=== PATIENT | male | born 1940 | race Caucasian/White ===

== ENCOUNTER 2018-06-05 15:25 | Inpatient (IN) | payer MEDICARE, OTHER, SELFPAY ==
[2018-05-29 12:52] VITALS: BMI 42.8
[2018-06-04] VITALS (14 sets, daily range): BP systolic 138–164; BP diastolic 64–96; PULSE 57–84; RESP 11–20; TEMP 35.4–36.7; O2SAT 91–100; BMI 42.8
--- NOTE | 2018-06-04 06:00 | DI.RAD.S_ITS ---
PROCEDURE: XR KNEE RT 1TO2V INDICATIONS: prosthesis placement TECHNIQUE: 2 view(s) of the knee acquired. COMPARISON: [facility], MR, MR KNEE RIGHT WITHOUT CONTRAST, 04/10/2018, 11:15. [facility], CR, XR KNEE STANDING BILATERAL, 03/13/2018, 9:56. [facility] Outside Film, RG, KNEE 3VW (LT), 02/07/2018, 16:33. [facility] Outside Film, RG, KNEE 3VW (RT), 02/07/2018, 16:33. FINDINGS: Bones: Patient is status post knee joint daisy-arthroplasty. Hardware components are in expected positions. Visualized bony structures are intact. Soft tissues: Overlying postoperative changes are noted. IMPRESSION: Status post right knee hemiarthroplasty as above. Dictated by: Yumiko Pires M.D. on 06/04/2018 at 19:53 Approved by: Yumiko Pires M.D. on 06/04/2018 at 19:53
[2018-06-04] MEDS: LACTATED RINGERS 1,000 ML 42 ML IV (14:22)
--- NOTE | 2018-06-04 14:50 | PM.PREOP ---
Pre-operative Note Interval Note Pre-op Check: Yes History & Physical Reviewed by Physician and Yes Exam Performed Changes: No
--- NOTE | 2018-06-04 14:52 | P.OP_ITS ---
Operative Date/Time/Diagnoses Date of procedure: 06/04/18 Time of procedure: 17:03 Pre-op diagnosis: Right knee medial compartment osteoarthritis Post-op diagnosis: same Procedure & Clinicians Procedure: Right knee medial compartment arthroplasty Same procedure as scheduled: Yes Indications: The patient presents today for medial compartment knee arthroplasty after failure of conservative treatment. The nature of the procedure including the risks and benefits, alternatives, postoperative course and expected outcome were discussed and all questions answered. Consent was obtained. Operative site confirmed and marked. Surgeon: Marin Rodriguez Drafter Marine: Joe Wallace Anesthesia Type: General and Local Operative Notes Findings: Severe medial compartment osteoarthritis. Closure Type: primary Specimen(s): none sent Implants & Drains: Ghotra and Nephew ZUK knee E femur, 4 tibia and 8 mm polyethylene spacer. Applied: implant(s) Estimated Blood Loss (mL): 25 Blood products transfused: none Tourniquet time (min): 35 Procedure in detail: The patient was taken to the operative suite and placed under general anesthesia. The patient received prophylactic antibiotics 1 g of IV tranexamic acid prior to surgery. The lateral aspect of the leg was prepped and the knee injected with 20 mL of 1% lidocaine with epinephrine. The leg was prepped and draped in usual sterile fashion. The leg was exsanguinated with an Esmarch dressing and the tourniquet raised to 250 torr. A 10 cm medial parapatellar incision and arthrotomy was then made. The anterior aspect of the fat pad and medial meniscus was resected. A small amount of anterior tibial boss was resected with a oscillating saw. The knee was then extended and the alignment guide placed. The distal femoral and proximal tibial cutting guides were then pinned into place. The distal femoral cut was made in extension. The proximal tibial cut was made in flexion. All remaining meniscus was excised. Gaps were checked with blocks. Soft tissues were then injected with a combination of 40 mL of quarter percent Marcaine with epinephrine, 20 mL of Exparel. The femur was sized and the appropriate cutting guide placed. The peg holes were drilled and chamfer cuts made. Next the tibia was sized and drilled. Trial components were then placed. The knee had good nondenominational of soft tissue tension without over correction. Range of motion was full. The trial components were removed. The knee was cleansed with Pulsavac irrigation and dried. The components were then cemented with high viscosity vacuum mixed bone cement. The knee was held in extension until the cement had adequately cured. The knee was then irrigated and inspected for any further debris. The extensor mechanism was closed at 90? of flexion with a few interrupted #1 Vicryl sutures and a running O V-LOC suture. The knee was then filled with 50 mL of solution containing 1 g of tranexamic acid and 10 mL of 0.5% Marcaine. The subcutaneous tissue was closed with 2-0 Vicryl. The skin was closed with a running 3 0 V-LOC suture and surgical adhesive. An Aquacel dressing was applied. The leg was then wrapped with an Salomon which will be kept on for the first 24 hours. The patient tolerated the procedure well and was returned to recovery room in good condition. Condition: stable Disposition: PACU Plan for aftercare: Patient will be admitted overnight for observation and discharged home tomorrow. Standard protocol for medial compartment arthroplasty.
[2018-06-04] MEDS: CELECOXIB 200 MG CAPSULE PO (15:08)
[2018-06-04] MEDS: ACETAMINOPHEN 325 MG TABLET 975 MG PO ×2 (15:09→21:25)
[2018-06-04] MEDS: PREGABALIN 75 MG CAPSULE PO (15:09)
--- NOTE | 2018-06-04 15:16 | SUR.PREOP ---
pt has red and swollen area around lt eye , dr. caballero notified and examined pt , ok to proceed with surgery
[2018-06-04] MEDS: CEFAZOLIN 2 GM/100 ML FROZ.PIGGY IV (15:55)
[2018-06-04] MEDS: LIDOCAINE 1% W/EPI INJ 20 ML INJ (16:01)
--- NOTE | 2018-06-04 16:22 | SUR.OPER ---
Supine on padded OR bed. Pillow under head, arms secured on padded armboards <90 degree abduction. Safety belt across torso. Non-operative leg secured with tape over blanket over lower leg. Operative leg secured in DeMayo/Mario Alberto positioner. Foam padded brace at thigh of operative leg.
[2018-06-04] MEDS: TRANEXAMIC ACID 1,000 MG VIAL 1000 MG INJ (16:31)
[2018-06-04] MEDS: BUPIVACAINE 0.5% W/ EPI (PF) 20 ML, BUPIVACAINE LIPOSOME 266 MG, SODIUM CHLORIDE 0.9% 2... INJ (16:32)
[2018-06-04] MEDS: BUPIVACAINE 0.5% (PF) 10 ML, TRANEXAMIC ACID 1,000 MG, SODIUM CHLORIDE 0.9% 20 ML INJ (16:33)
--- NOTE | 2018-06-04 17:05 | SUR.OPER ---
Preoperatively the Patient has 3+ pitting edema and cellulitis on his right lower extremity (operative side) that the surgeon is aware of . He also has swelling and redness beneath is left eye preoperatively-surgeon is aware.
[2018-06-04] MEDS: LACTATED RINGERS 1,000 ML 125 ML IV (18:43)
--- NOTE | 2018-06-04 19:41 | PC.ADMIT ---
[id number] Admission Note: The patient,Bob Rabago,78 y/o, was given written information regarding hospital policies, unit procedures and contact persons. Patient's smoking status: Former smoker. Vital Signs - 8 hr 06/04/18 13:58 06/04/18 17:20 06/04/18 17:25 Temperature 98.0 F 97.1 F L Pulse Rate 57 L 74 78 Respiratory Rate 17 13 11 L Blood Pressure 138/81 164/96 H 164/96 H Pulse Oximetry 93 95 95 06/04/18 17:30 06/04/18 17:35 06/04/18 17:42 Temperature Pulse Rate 77 74 72 Respiratory Rate 14 14 13 Blood Pressure 160/84 H 160/83 H 159/89 H Pulse Oximetry 94 96 94 06/04/18 17:50 06/04/18 18:00 06/04/18 18:30 Temperature 97.1 F L 95.8 F L 96.7 F L Pulse Rate 73 76 76 Respiratory Rate 20 16 16 Blood Pressure 148/77 H 139/64 Pulse Oximetry 95 95 94 06/04/18 19:00 06/04/18 19:15 Temperature 97.5 F L Pulse Rate 80 Respiratory Rate 20 Blood Pressure 144/80 H Pulse Oximetry 100 98 Pt arrived to floor with rn from PACU, alert and oriented, denies pain. on 2l nc, will attempt to wean. Pt uses call light. oriented to hospital room and procedures. no nausea/sob. ate apple sauce, then sandwich, all with no n/v. then at meal, mashed potatoes, broccoli, cake, beef stew. tolerated great, no n/v. Pt has not yet voided, will continue to monitor. Pt bed alarm on scd on milli.
[2018-06-04] MEDS: ASPIRIN EC 81 MG TABLET PO (21:24)
[2018-06-05] VITALS (9 sets, daily range): BP systolic 113–143; BP diastolic 51–81; PULSE 79–91; RESP 16–19; TEMP 36.3–36.9; O2SAT 90–95
[2018-06-05] MEDS: MIRTAZAPINE 7.5 MG TABLET 30 MG PO (01:13)
[2018-06-05] MEDS: CEFAZOLIN 2 GM/100 ML FROZ.PIGGY IV ×2 (01:13→09:26)
[2018-06-05] MEDS: LACTATED RINGERS 1,000 ML 125 ML IV (03:00)
[2018-06-05 06:04] LABS: Hematocrit 43.4 % (41-53); Hemoglobin 14.4 g/dL (13.5-17.5)
[2018-06-05] MEDS: ALBUTEROL 2.5 MG/3 ML NEB (ADULT) INH (08:57)
[2018-06-05] MEDS: IPRATROPIUM HFA 1 PUFF INH ×2 (09:18→18:42)
[2018-06-05] MEDS: TORSEMIDE 10 MG TABLET 20 MG PO (09:18)
[2018-06-05] MEDS: LOSARTAN 50 MG TABLET 25 MG PO (09:18)
[2018-06-05] MEDS: ASPIRIN EC 81 MG TABLET PO ×2 (09:19→20:36)
[2018-06-05] MEDS: IBUPROFEN 600 MG TABLET PO (09:19)
[2018-06-05] MEDS: POTASSIUM CHLORIDE 20 MEQ TAB PO (09:20)
[2018-06-05] MEDS: ACETAMINOPHEN 325 MG TABLET 975 MG PO ×3 (09:26→20:36)
--- NOTE | 2018-06-05 09:39 | PM.PNPO.1 ---
Subjective Date Patient Seen: 06/05/18 Time Patient Seen: 09:39 Interval history: Patient is postop day 1. Status post right knee medial compartment arthroplasty by Dr. Rodriguez. States he having a lot of pain but he is trying not to take any narcotics if necessary because he has been drug and alcohol free for 35 years. Has not ambulated with physical therapy yet. He has 35 steps at home to get up to. History of COPD and was on nasal O2 this morning but is O2 stats atre at his baseline level now. Also history of sleep apnea and has a CPAP machine that he wears at night. Exam Vital Signs (past 8 hours): - 06/05/18 04:15 06/05/18 07:15 06/05/18 08:20 Temperature 98.1 F 98.4 F Pulse Rate 82 79 Respiratory Rate 19 18 Blood Pressure 138/73 143/81 H Pulse Oximetry 93 93 94 06/05/18 08:28 06/05/18 08:57 Temperature Pulse Rate 91 H Respiratory Rate 16 Blood Pressure Pulse Oximetry 90 L 92 Fraction of Inspired Oxygen 21 Oxygen Delivery Method Nasal Cannula Oxygen Flow Rate 1 Narrative Exam Narrative: Patient in bed. Alert and orient x3. Right knee dressing with an Salomon overwrap clean dry and intact. On some lower leg edema. Bilateral calves soft and nontender. Neurovascular status intact. 5/5 right ankle strength. Objective Labs Result Diagrams: 06/05/18 05:44 Labs: Laboratory Results - last 24 hr 06/05/18 05:44 Hgb 14.4 Hct 43.4 Assessment & Plan Post-op Postoperative Status post right knee medial compartment arthroplasty by Dr. Rodriguez. Postop day 1. Patient to ambulate with physical therapy today and work on stairs. History of COPD, sleep apnea, and morbid obesity so slow to ambulate. Would benefit from another day in the hospital. Continue pain medication as needed. Continue DVT prophylaxis with aspirin b.i.d. Anticipate discharge home tomorrow.
--- NOTE | 2018-06-05 10:06 | PT.IIE ---
Current Diagnoses Unilateral primary osteoarthritis, right knee (06/04/18) Surgery Performed Operation Date: 06/04/18 15:15 Actual Procedures p Unicompartment Knee Arthroplasty-Medial(Right) - Marin Rodriguez MD Surgical History (Last Updated 05/29/18 @ 13:29 by Mai Ahmadi RN) Hx of hernia repair (Acute) Hx of tonsillectomy (Acute) Status post cataract extraction of both eyes with insertion of intraocular lens (Acute) Medical History (Last Updated 05/29/18 @ 13:43 by Mai Ahmadi RN) Antisocial behavior (Acute) Anxiety (Acute) Arthritis (Acute) BCC (basal cell carcinoma of skin) (Acute) COPD (chronic obstructive pulmonary disease) (Acute) Cellulitis (Acute) Degenerative arthritis of right knee (Acute) Depression (Acute) Diabetes (Acute) Diverticulosis (Acute) Enlarged prostate (Acute) GERD (gastroesophageal reflux disease) (Acute) History of ETOH abuse (Acute) History of stroke (Acute ~1960) Hypertension (Acute) Numbness (Acute) Paroxysmal A-fib (Acute) Pneumonia (Acute) Skin cancer (Acute) Sleep apnea treated with nocturnal BiPAP (Acute) Physical Therapy Inpatient Evaluation/Re-Eval M1 PT/OT-IP Prior Functional Status Start: 06/05/18 12:25 Freq: NEEDED Status: Active Protocol: Document 06/05/18 10:06 AB (Rec: 06/05/18 12:44 AB [id number]) Medical Review Prior Functional Status Medical History Reviewed Yes Communication able to make needs known Mobility and Gait pt stated that he is modified independent with all mobilities and ambulation without AD but has used a SPC for the last 1-2 weeks due to knee pain. Social History Household Members family Living Arrangements Apartment/Condo Number of Floors (Floors) One Floor Number of Stairs To Enter/Railing? 35 steps to get to his apartment with one rail Home Environment Standard Height Toilet Walk in Shower Home Equipment Four Wheel Walker Straight Cane Lift Recliner Employment Status Retired Additional Social History Comment pt stated that he has not slept on a bed for 3 years and has been sleeping on his lift chair. stated that his brother will not be able to assist him and stated that his brother is medically more deconditioned than him. M2 PT-IP Current Condition Start: 06/05/18 12:25 Freq: NEEDED Status: Active Protocol: Document 06/05/18 10:06 AB (Rec: 06/05/18 12:44 AB [id number]) Physical Therapy Current Condition Current Condition Evaluation Date 06/05/18 Treatment Diagnosis s/p R medial compartment knee replacement Onset Date 06/04/18 Weight Bearing Status Weight Bearing Status Weight Bear as Tolerated M3 PT-IP Subjective Start: 06/05/18 12:25 Freq: NEEDED Status: Active Protocol: Document 06/05/18 10:06 AB (Rec: 06/05/18 12:44 AB [id number]) Subjective Physical Therapy Visit Type Type Initial Evaluation Visit Start Time 10:06 Visit Stop Time 10:51 Total Visit Minutes 45 Number of NURSE EXTERN Visits 0 Physical Therapy Visit Comments Patient Comments pt agreed to get out of bed Therapy Pain Assessment Pain When Pain Assessed During Mobility Pain Present Pain Present Pain Reported Location Right Knee Intensity 8 Scale Used Numeric (1 - 10) Pain Management Techniques Apply Cold Re-positioning Timing of Activity with Medications M4 PT-IP Mobility and Gait Start: 06/05/18 12:25 Freq: NEEDED Status: Active Protocol: Document 06/05/18 10:06 AB (Rec: 06/05/18 12:44 AB [id number]) PT-Bed Mobility Assessment Supine to Sit Supine to Sit Maximum Assistance Head of Bed Elevated Bedrails PT-Transfer Assessment Sit to and From Stand Sit to and from Stand Moderate Assistance 1 Person Assistance Use of Upper Extremities Equipment Transfer Assistive Device Gait Belt Front Wheeled Walker Orthotic/Prosthetic Devices or Brace: No Transfers Transfer Destination Chair Transfer Technique Stand Step Pivot Transfer Ability Level of Assist Moderate Assistance 1 Person Assistance Use of Upper Extremities Gait Assessment Gait Gait Assistance Required: Moderate Assistance Distance (Feet) 12 Able to Maintain Weight Bearing Status Yes During Gait Assistive Devices Assistive Device Gait Belt Front Wheeled Walker Orthotic/Prosthetic Devices or Brace: No Gait Deviations General Gait Pattern Antalgic Decreased Stride Length Decreased Feet Clearance Factors Limiting Gait Function Factors Limiting Gait Function Decreased Activity Tolerance Decreased Strength Limited Range of Motion Pain Poor Balance Poor Safety Awareness PT-Balance Assessment Sitting Balance and Reactions Static Sitting Balance Ability Good Dynamic Sitting Balance Ability Good Standing Balance and Reactions Static Standing Balance Ability Fair Dynamic Standing Balance Ability Poor Device Used FWW M5 PT-IP Objective Assessments Start: 06/05/18 12:25 Freq: NEEDED Status: Active Protocol: Document 06/05/18 10:06 AB (Rec: 06/05/18 12:44 AB [id number]) Orientation Orientation/Cognition Level of Alertness Alert Orientation Name Age Birthday Month Date Year Day of Week Place Situation Safety Awareness Decreased Safety Awareness Gross Range of Motion Lower Extremity ROM Assessment Bilaterally Impaired Strength Lower Extremity Strength Assessment Bilaterally Impaired Comments Strength Comments RLE weaker than LLE RLE 3-/5 LLE 4-/5 M6 PT-IP Treatment Start: 06/05/18 12:25 Freq: NEEDED Status: Active Protocol: Document 06/05/18 10:06 AB (Rec: 06/05/18 12:44 AB [id number]) Physical Therapy Treatment Education Education Provided Precautions Weight Bearing Status Post-Op Packet Safety M7 PT-IP Assessment and Plan Start: 06/05/18 12:25 Freq: NEEDED Status: Active Protocol: Document 06/05/18 10:06 AB (Rec: 06/05/18 12:44 AB [id number]) PT Summary Assessment and Plan Potential Rehabilitation Potential Fair Status of Condition at Evaluation Evolving Summary Impairments Pain ROM Strength Balance Coordination Sensation Tone Cognition Bed Mobility Transfers Gait Activity Tolerance Assessment Summary pt requiring one person mod assist with mobility and does not have much support at home. pt also has 35 steps to get into his apartment and at this time is not appropriate for stair climbing due to LE weakness and pain. pt will require SNF rehab to improve strength and mobility. Goals Bed Mobility Goal Standby Assistance Transfer Goal Standby Assistance Gait Goal Standby Assistance Gait Distance 100 Other Goals up/down 35 steps using 1 rail Days to Meet Goals 5 Frequency of Treatment Frequency Of Treatment Twice a Day Treatment Plan Physical Therapy Treatment Plan Bed Mobility Training Transfer Training Gait Training Therapeutic Exercise Balance Retraining Post Op Education Discharge Planning Hot or Cold Pack Neuromuscular Re-ed Coordination Retraining Manual Therapy Other Recommendations and Next Treatment ambulation, strengthening Focus Recommendations To Nursing Amount of Assist Needed 1 Person Assist Discharge Recommendations PT Discharge Recommendations SNF Rehab Equipment Needed for Home Before FWW Discharge
[2018-06-05] MEDS: OXYCODONE IR 5 MG TABLET PO ×3 (11:02→20:35)
--- NOTE | 2018-06-05 13:36 | CM.IDA ---
Addendum entered by ALICE Bob 06/05/18 13:45: Pt wears Bipap almost every night and explains he suffers from insomnia some nights. On the nights pt can not sleep or can not get back to sleep, pt goes to his car and can fall asleep there. Pt understands that although he gets good sleep in his car...he can not elevate his leg which causes addtl. edema. Original Note: DCP Assessment Note: Pt is a 78 yo male, resident of [place]. Pt SDC for a uni-knee surgery w/ Dr Rodriguez. Pt's PCP is Nikolas Guy; Insurance is Medicare/[employer]. Met w.pt, explained role. Pt lives w/his brother in an apt in [place]. Pt has lived there since 1997 and rent has not gone up very much. Pt explains he is going to stay in his current apt for as long as possible. Pt is indp at baseline, uses a cane when needed. Pt A+O, able to answer most questions directly, though often diverges into somewhat paranoid tendencies when reviewing life events, politics, and personal relationships. Pt admits to feeling nervous about his return home because he has 35 stairs to his apt. Reviewed SDC/Obs (?) status briefly and explained the possible barrier to covered SNF stay, pt was concerned and did not answer this EQUIPMENT COORDINATOR's question about funding for private pay stay. Pt agreeable to this EQUIPMENT COORDINATOR returning to [facility] in or Saturday to review DCP. Possibly home w/HH if pt agreeable. PT: SNF ALICE Bob Discharge Planning/Care Management CM Discharge Assessment Start: 06/05/18 13:23 Freq: Status: Active Protocol: Document 06/05/18 13:23 LAURA (Rec: 06/05/18 13:36 LAURA [id number]) Discharge Planning Assessment Assigned Regulatory Product Manager ALICE Moses DPOA/Assigned Designee Name brother Gonzalez Contact Information [phone] Advance Directives? No: Information put to patient 's chart Advance Directives on File No History Provided By Patient Prior Living Arrangements Apartment/Condo Household Members family Comment Lives with brother, pt states he will not be able to assist him in recovery Type of transporation used prior to Drives own vehicle admit Independent with ADL's Yes: Has used a cane when in pain, last few weeks Is patient alert and oriented? Yes: Notes indicate antisocial behavior, anxiety and depression Barriers to Discharge Yes Comment Pt is a larger man, 5'9 290 pounds, moving very slowly after his uni-knee with a lot of pain. Pt is SDC, possibly obs, and so far has denied funds to pay for SNF stay Discharge Plan Home Transportation Arrangement Family vs Taxi Additional Comment Pt would benefit from SNF; this EQUIPMENT COORDINATOR not certain this is a viable option for pt d/t limited funding. Home w/HH (?) Whiteboard Updated in Patient Room with Yes name and ext. # of Regulatory Product Manager Review Status In Process
--- NOTE | 2018-06-05 14:37 | PT.IPTN ---
Current Diagnoses Unilateral primary osteoarthritis, right knee (06/05/18) Surgery Performed Operation Date: 06/04/18 15:15 Actual Procedures p Unicompartment Knee Arthroplasty-Medial(Right) - Marin Rodriguez MD Physical Therapy Treatment Note M2 PT-IP Current Condition Start: 06/05/18 12:25 Freq: NEEDED Status: Active Protocol: Document 06/05/18 10:06 AB (Rec: 06/05/18 12:44 AB [id number]) Physical Therapy Current Condition Current Condition Evaluation Date 06/05/18 Treatment Diagnosis s/p R medial compartment knee replacement Onset Date 06/04/18 Weight Bearing Status Weight Bearing Status Weight Bear as Tolerated M3 PT-IP Subjective Start: 06/05/18 12:25 Freq: NEEDED Status: Active Protocol: Document 06/05/18 14:37 AB (Rec: 06/05/18 17:04 AB [id number]) Subjective Physical Therapy Visit Type Type Treatment Note Visit Start Time 14:37 Visit Stop Time 14:55 Total Visit Minutes 18 Number of INSTRUMENT MECHANIC Visits 0 Physical Therapy Visit Comments Patient Comments pt agreeable to do therapy Therapy Pain Assessment Pain When Pain Assessed At Rest Pain Present Pain Present Pain Reported Location Right Knee Intensity 7 Scale Used Numeric (1 - 10) Pain Management Techniques Timing of Activity with Medications M4 PT-IP Mobility and Gait Start: 06/05/18 12:25 Freq: NEEDED Status: Active Protocol: Document 06/05/18 14:37 AB (Rec: 06/05/18 17:04 AB [id number]) PT-Transfer Assessment Sit to and From Stand Sit to and from Stand Moderate Assistance Gait Assessment Gait Gait Assistance Required: Moderate Assistance Distance (Feet) 30 Able to Maintain Weight Bearing Status Yes During Gait Assistive Devices Assistive Device Gait Belt Front Wheeled Walker Orthotic/Prosthetic Devices or Brace: No Gait Deviations General Gait Pattern Antalgic Decreased Stride Length Decreased Feet Clearance Factors Limiting Gait Function Factors Limiting Gait Function Decreased Activity Tolerance Decreased Strength Limited Range of Motion Pain Poor Balance Poor Safety Awareness Comments Gait Comments pt with (+) R knee slight buckling towards late stance requiring mod A for stabilization and safety. pt with increase use of UE on FWW during ambulation. pt requested to stay up on chair after ambulation. educated pt on safety. M5 PT-IP Objective Assessments Start: 06/05/18 12:25 Freq: NEEDED Status: Active Protocol: Document 06/05/18 10:06 AB (Rec: 06/05/18 12:44 AB [id number]) Orientation Orientation/Cognition Level of Alertness Alert Orientation Name Age Birthday Month Date Year Day of Week Place Situation Safety Awareness Decreased Safety Awareness Gross Range of Motion Lower Extremity ROM Assessment Bilaterally Impaired Strength Lower Extremity Strength Assessment Bilaterally Impaired Comments Strength Comments RLE weaker than LLE RLE 3-/5 LLE 4-/5 M6 PT-IP Treatment Start: 06/05/18 12:25 Freq: NEEDED Status: Active Protocol: Document 06/05/18 14:37 AB (Rec: 06/05/18 17:04 AB [id number]) Physical Therapy Treatment Exercises Exercises Seated Knee Flexion/Extension Education Education Provided Precautions Weight Bearing Status Safety M7 PT-IP Assessment and Plan Start: 06/05/18 12:25 Freq: NEEDED Status: Active Protocol: Document 06/05/18 14:37 AB (Rec: 06/05/18 17:04 AB [id number]) PT Summary Assessment and Plan Potential Rehabilitation Potential Fair Summary Impairments Pain ROM Strength Balance Coordination Sensation Tone Cognition Bed Mobility Transfers Gait Activity Tolerance Progress Towards Goals Slow Progress due to Pain Slow Progress due to Activity Tolerance Assessment Summary pt requiring mod A with transfers and ambulation. pt with increase use of UE on FWW during ambulation with (+) R knee slight buckling requiring mod A for stability and safety. pt is not appropriate to do stair training at this time. informed pt regarding d /c recommendation to SNF but pt stated that he cannot afford it since he has to pay out of pocket (pt is under observation at this time and may not have medicare qualifying stay). pt also will not have any assistance at home since his brother will not be able to physically assist him. informed supervisor case loading. will continue to assess. Goals Bed Mobility Goal Standby Assistance Transfer Goal Standby Assistance Gait Goal Standby Assistance Gait Distance 100 Other Goals up/down 35 steps using 1 rail Days to Meet Goals 5 Frequency of Treatment Frequency Of Treatment Twice a Day Treatment Plan Physical Therapy Treatment Plan Bed Mobility Training Transfer Training Gait Training Therapeutic Exercise Balance Retraining Post Op Education Discharge Planning Hot or Cold Pack Neuromuscular Re-ed Coordination Retraining Manual Therapy Other Recommendations and Next Treatment ambulation, strengthening Focus Recommendations To Nursing Amount of Assist Needed 1 Person Assist Discharge Recommendations PT Discharge Recommendations SNF Rehab Equipment Needed for Home Before FWW Discharge
[2018-06-05] MEDS: SODIUM CHLORIDE 0.9% FLUSH 10 ML IV (20:36)
[2018-06-06] VITALS (8 sets, daily range): BP systolic 137–156; BP diastolic 58–79; PULSE 68–90; RESP 16–18; TEMP 36.5–37.6; O2SAT 89–98
[2018-06-06] MEDS: ALBUTEROL 2.5 MG/3 ML NEB (ADULT) INH (00:21)
[2018-06-06] MEDS: OXYCODONE IR 5 MG TABLET PO ×3 (02:20→13:58)
[2018-06-06] MEDS: ACETAMINOPHEN 325 MG TABLET 975 MG PO ×2 (08:50→21:01)
[2018-06-06] MEDS: IPRATROPIUM HFA 1 PUFF INH ×2 (08:51→21:02)
[2018-06-06] MEDS: LOSARTAN 25 MG TABLET PO (08:51)
[2018-06-06] MEDS: ASPIRIN EC 81 MG TABLET PO ×2 (08:51→21:01)
[2018-06-06] MEDS: SODIUM CHLORIDE 0.9% FLUSH 10 ML IV ×2 (08:52→21:02)
[2018-06-06] MEDS: TORSEMIDE 10 MG TABLET 20 MG PO (08:52)
[2018-06-06] MEDS: POTASSIUM CHLORIDE 20 MEQ TAB PO (08:52)
[2018-06-06] MEDS: MAGNESIUM HYDROXIDE 30 ML UDC PO (09:11)
--- NOTE | 2018-06-06 09:51 | P.PN_ITS ---
Subjective Date Patient Seen: 06/06/18 Time Patient Seen: 09:46 Interval history: Patient is postop day 2 status post right medial compartment arthroplasty by Dr. Rodriguez. Patient very slow to ambulate. Pain tolerable with pain medication but he is only trying to take Tylenol as needed for pain with oxycodone for breakthrough pain. Discharge planning is working on placement for him at a SNF due to his home situation and comorbidities. Exam Vital Signs (past 8 hours): - 06/06/18 06:18 Temperature 98.7 F Pulse Rate 90 Respiratory Rate 16 Blood Pressure 156/68 H Pulse Oximetry 93 Fraction of Inspired Oxygen 21 Oxygen Delivery Method Nasal Cannula Oxygen Flow Rate 1 Narrative Exam Narrative: Right knee with an RAY overwrap. There is some drainage on his Aquacel dressing. Moderate swelling in right knee. Lower leg edema. Bilateral calf soft and nontender. Neurovascular status intact. Five hundred five right ankle strength. Patient in bed. Alert and orient x3. Objective Labs Result Diagrams: 06/05/18 05:44 Assessment & Plan Post-op Postoperative Procedures Operation Date: 06/04/18 15:15 Actual Procedures Side Surgeon p Unicompartment Knee Arthroplasty-Medial Right Marin Rodriguez MD Postop day 2. Patient to continue ambulating with physical therapy. Continue DVT prophylaxis with aspirin b.i.d. continue pain management with Tylenol and oxycodone for breakthrough pain. Anticipate discharge to longterm facility tomorrow if bed available.
--- NOTE | 2018-06-06 10:25 | PT.IPTN ---
Current Diagnoses Unilateral primary osteoarthritis, right knee (06/05/18) Surgery Performed Operation Date: 06/04/18 15:15 Actual Procedures p Unicompartment Knee Arthroplasty-Medial(Right) - Marin Rodriguez MD Physical Therapy Treatment Note M2 PT-IP Current Condition Start: 06/05/18 12:25 Freq: NEEDED Status: Active Protocol: Document 06/05/18 10:06 AB (Rec: 06/05/18 12:44 AB [id number]) Physical Therapy Current Condition Current Condition Evaluation Date 06/05/18 Treatment Diagnosis s/p R medial compartment knee replacement Onset Date 06/04/18 Weight Bearing Status Weight Bearing Status Weight Bear as Tolerated M3 PT-IP Subjective Start: 06/05/18 12:25 Freq: NEEDED Status: Active Protocol: Document 06/06/18 10:25 GGD (Rec: 06/06/18 12:10 GGD [id number]) Subjective Physical Therapy Visit Type Type Treatment Note Visit Start Time 10:00 Visit Stop Time 10:25 Total Visit Minutes 25 Number of WEARING APPAREL SHAKER Visits 1 Physical Therapy Visit Comments Patient Comments Pt want's to get up. Therapy Pain Assessment Pain When Pain Assessed At Rest Pain Present Pain Present Pain Reported Location Right Knee Intensity 2 Scale Used Numeric (1 - 10) Pain Management Techniques Timing of Activity with Medications M4 PT-IP Mobility and Gait Start: 06/05/18 12:25 Freq: NEEDED Status: Active Protocol: Document 06/06/18 10:25 GGD (Rec: 06/06/18 12:10 GGD [id number]) PT-Bed Mobility Assessment Supine to Sit Supine to Sit Moderate Assistance 1 Person Assistance Head of Bed Elevated Bedrails Scooting Scooting to Edge of Bed Contact Guard Assistance PT-Transfer Assessment Sit to and From Stand Sit to and from Stand Minimal Assistance 1 Person Assistance Use of Upper Extremities Equipment Transfer Assistive Device Gait Belt Front Wheeled Walker Transfers Transfer Destination Chair Transfer Ability Level of Assist Minimal Assistance 1 Person Assistance Gait Assessment Gait Gait Assistance Required: Minimum Assistance 1 Person Assist Distance (Feet) 35 Assistive Devices Assistive Device Gait Belt Front Wheeled Walker Gait Deviations General Gait Pattern Antalgic Decreased Stride Length Decreased Feet Clearance Factors Limiting Gait Function Factors Limiting Gait Function Decreased Activity Tolerance Decreased Strength Limited Range of Motion Pain Poor Balance Poor Safety Awareness M5 PT-IP Objective Assessments Start: 06/05/18 12:25 Freq: NEEDED Status: Active Protocol: Document 06/05/18 10:06 AB (Rec: 06/05/18 12:44 AB [id number]) Orientation Orientation/Cognition Level of Alertness Alert Orientation Name Age Birthday Month Date Year Day of Week Place Situation Safety Awareness Decreased Safety Awareness Gross Range of Motion Lower Extremity ROM Assessment Bilaterally Impaired Strength Lower Extremity Strength Assessment Bilaterally Impaired Comments Strength Comments RLE weaker than LLE RLE 3-/5 LLE 4-/5 M6 PT-IP Treatment Start: 06/05/18 12:25 Freq: NEEDED Status: Active Protocol: Document 06/06/18 10:25 GGD (Rec: 06/06/18 12:10 GGD [id number]) Physical Therapy Treatment Exercises Exercises Ankle Pumps Quad Sets Heel Slides Seated Knee Flexion/Extension Education Education Provided Precautions Weight Bearing Status Safety M7 PT-IP Assessment and Plan Start: 06/05/18 12:25 Freq: NEEDED Status: Active Protocol: Document 06/06/18 10:25 GGD (Rec: 06/06/18 12:10 GGD [id number]) PT Summary Assessment and Plan Summary Assessment Summary Pt improved with bed mobility and transfer. He needed less assist. He did need the HOB elevated and min a with LE. He has heavy use of UE on FWW with gait. Frequency of Treatment Frequency Of Treatment Twice a Day Treatment Plan Physical Therapy Treatment Plan Bed Mobility Training Transfer Training Gait Training Therapeutic Exercise Balance Retraining Post Op Education Discharge Planning Hot or Cold Pack Neuromuscular Re-ed Coordination Retraining Manual Therapy Other Recommendations and Next Treatment ambulation, strengthening Focus Recommendations To Nursing Amount of Assist Needed 1 Person Assist Discharge Recommendations PT Discharge Recommendations SNF Rehab
--- NOTE | 2018-06-06 10:25 | PC.NURSE ---
Addendum entered by Alexandra De La Paz R.N. 06/06/18 11:35: L EYE - pt had called his md regarding eye drop, per Remberto in pharmacy, this drop is not carried here, informed pt and given a warm basin water and wash clothes for compress to l eye. Original Note: AM NOTE - pt is awake, talkative, voicing concerns over his possible discharge and the lack of arrangements for home, states he would have to stay in a motel in [place] as that is where he lives, later am [facility] social services designee in and current plan for pt to dc to snf probably tommorow, slow to mobilize, r knee w/edema and some warmth and redness to touch, aquacell dsg with shadow drainage at prox end, later HALEY Cortés in to visualize and new order rec'd to change, removed, bonded incision w/o drainage, replaced aquacell, given 5mg oxycodone and scheduled tylenol for planned mobilization this am, has a red eyelid w/hx receiving eye drops prior to adm, warm compress this am and pt called provider and the info regarding eye drop was obtained, 2l 02 with sat 98%, not using his cpap currently, RT in this am and placed RA and maintained 94%, used own inhaler this am, discussed constipation and narcotics, new orders laxatives rec'd and given stool softener and mom this am.
[2018-06-06] MEDS: DOCUSATE 100 MG CAPSULE PO ×2 (10:32→21:01)
[2018-06-06] MEDS: SENNOSIDES 8.6 MG TABLET PO ×2 (10:33→21:01)
[2018-06-06] MEDS: POLYETHYLENE GLYCOL 3350 17 GM POWD.PACK PO (10:33)
--- NOTE | 2018-06-06 13:04 | CM.DPC ---
Referrral faxed to [facility] and [facility] left per Richelle
--- NOTE | 2018-06-06 15:32 | CM.DPC ---
DCP Cont: Pt has been changed to inpt status as of 06.05.18. PT continues to recommend SNF. Discussed this change with pt, his brother Khris, and their friend at bedside this afternoon, pt very relieved and eager to DC to a SNF for continued rehab. Reviewed Medicare benefit for SNF and three midnight rule. Reviewed the list from medicare.gov for [facility] facilities in [place] (per pt's request) pt requests a SNF search in this order: 1. [facility] 2. [facility] 3. [facility] physician assistant Jono started referral process to [facility] [place]. Spoke w/Francesca in admissions P# [phone] who explained pt is accepted for care and they hope to have a bed available Saturday (a few admissions already pending that day). She requests the team call admission nurse for that day at P# [phone] to update w/DC order and F# [phone] for DC ppk. No transportation provided by this facility so options are private vehicle or paid cabulance. This ANGIOGRAPHER unsure what Co will [place] county lines; need to research this w/e. According to Francesca, no admission accepted after 1600, admission hours preferred are [id number]. Following closely. Need to update pt still on this progress and get PASSR signed. ALICE Bob
--- NOTE | 2018-06-06 15:59 | PT.IPTN ---
Current Diagnoses Unilateral primary osteoarthritis, right knee (06/05/18) Surgery Performed Operation Date: 06/04/18 15:15 Actual Procedures p Unicompartment Knee Arthroplasty-Medial(Right) - Marin Rodriguez MD Physical Therapy Treatment Note M2 PT-IP Current Condition Start: 06/05/18 12:25 Freq: NEEDED Status: Active Protocol: Document 06/05/18 10:06 AB (Rec: 06/05/18 12:44 AB [id number]) Physical Therapy Current Condition Current Condition Evaluation Date 06/05/18 Treatment Diagnosis s/p R medial compartment knee replacement Onset Date 06/04/18 Weight Bearing Status Weight Bearing Status Weight Bear as Tolerated M3 PT-IP Subjective Start: 06/05/18 12:25 Freq: NEEDED Status: Active Protocol: Document 06/06/18 15:50 GGD (Rec: 06/06/18 15:57 GGD [email or web address]) Subjective Physical Therapy Visit Type Type Treatment Note Visit Start Time 15:20 Visit Stop Time 15:45 Total Visit Minutes 25 Number of REFRIGERATOR REPAIR TECHNICIAN Visits 2 Physical Therapy Visit Comments Patient Comments Pt states he is sleepy. Therapy Pain Assessment Pain When Pain Assessed At Rest Pain Present Pain Present Denied Pain M4 PT-IP Mobility and Gait Start: 06/05/18 12:25 Freq: NEEDED Status: Active Protocol: Document 06/06/18 15:50 GGD (Rec: 06/06/18 15:57 GGD [id number]) PT-Bed Mobility Assessment Supine to Sit Supine to Sit Minimal Assistance 1 Person Assistance Head of Bed Elevated Bedrails Sit to Supine Sit to Supine Minimal Assistance 1 Person Assistance Head of Bed Elevated Bedrails Scooting Scooting to Edge of Bed Contact Guard Assistance PT-Transfer Assessment Sit to and From Stand Sit to and from Stand Minimal Assistance 1 Person Assistance Use of Upper Extremities Equipment Transfer Assistive Device Gait Belt Front Wheeled Walker Transfers Transfer Destination Bed Transfer Ability Level of Assist Minimal Assistance 1 Person Assistance Gait Assessment Gait Gait Assistance Required: Contact Guard Assist 1 Person Assist Distance (Feet) 50 Assistive Devices Assistive Device Gait Belt Front Wheeled Walker Gait Deviations General Gait Pattern Antalgic Decreased Stride Length Decreased Feet Clearance Factors Limiting Gait Function Factors Limiting Gait Function Decreased Strength Limited Range of Motion Pain Poor Safety Awareness M5 PT-IP Objective Assessments Start: 06/05/18 12:25 Freq: NEEDED Status: Active Protocol: Document 06/05/18 10:06 AB (Rec: 06/05/18 12:44 AB [id number]) Orientation Orientation/Cognition Level of Alertness Alert Orientation Name Age Birthday Month Date Year Day of Week Place Situation Safety Awareness Decreased Safety Awareness Gross Range of Motion Lower Extremity ROM Assessment Bilaterally Impaired Strength Lower Extremity Strength Assessment Bilaterally Impaired Comments Strength Comments RLE weaker than LLE RLE 3-/5 LLE 4-/5 M6 PT-IP Treatment Start: 06/05/18 12:25 Freq: NEEDED Status: Active Protocol: Document 06/06/18 15:50 GGD (Rec: 06/06/18 15:57 GGD [id number]) Physical Therapy Treatment Exercises Exercises Ankle Pumps Quad Sets Heel Slides Education Education Provided Safety M7 PT-IP Assessment and Plan Start: 06/05/18 12:25 Freq: NEEDED Status: Active Protocol: Document 06/06/18 15:50 GGD (Rec: 06/06/18 15:57 GGD [id number]) PT Summary Assessment and Plan Summary Assessment Summary Pt improved stability with gait, no LOB or knee buckling. He has heavy use of UE on FWW . He needs assist for sit to stand. He needs less assist with bed mobility with HOB elevated. Frequency of Treatment Frequency Of Treatment Twice a Day Treatment Plan Other Recommendations and Next Treatment ambulation, strengthening Focus Recommendations To Nursing Amount of Assist Needed 1 Person Assist Discharge Recommendations PT Discharge Recommendations SNF Rehab
[2018-06-07] VITALS (8 sets, daily range): BP systolic 118–140; BP diastolic 56–77; PULSE 75–86; RESP 16–20; TEMP 36.4–37.2; O2SAT 90–96
[2018-06-07] MEDS: MAGNESIUM HYDROXIDE 30 ML UDC PO (08:36)
[2018-06-07] MEDS: OXYCODONE IR 5 MG TABLET PO ×3 (08:36→17:52)
[2018-06-07] MEDS: POLYETHYLENE GLYCOL 3350 17 GM POWD.PACK PO (08:36)
[2018-06-07] MEDS: ASPIRIN EC 81 MG TABLET PO ×2 (08:37→20:39)
[2018-06-07] MEDS: DOCUSATE 100 MG CAPSULE PO ×2 (08:37→20:39)
[2018-06-07] MEDS: POTASSIUM CHLORIDE 20 MEQ TAB PO (08:37)
[2018-06-07] MEDS: LOSARTAN 25 MG TABLET PO (08:37)
[2018-06-07] MEDS: ACETAMINOPHEN 325 MG TABLET 975 MG PO ×2 (08:38→20:38)
[2018-06-07] MEDS: TORSEMIDE 10 MG TABLET 20 MG PO (08:38)
[2018-06-07] MEDS: IPRATROPIUM HFA 1 PUFF INH ×2 (08:39→19:57)
[2018-06-07] MEDS: SENNOSIDES 8.6 MG TABLET PO (08:39)
--- NOTE | 2018-06-07 11:22 | PM.PNPO.1 ---
Subjective Date Patient Seen: 06/07/18 Time Patient Seen: 11:22 Interval history: Patient is postop day 3 status post right medial compartment arthroplasty by Dr. Rodriguez. Patient slow to ambulate. He has been able to get out of bed into a chair and participating in some bed exercises. Pain tolerable with Tylenol and oxycodone for breakthrough pain. Plan is for the patient to be DC to rehab facility tomorrow in [facility]. Exam Vital Signs (past 8 hours): - 06/07/18 04:53 06/07/18 09:34 Temperature 97.9 F 97.8 F Pulse Rate 82 86 Respiratory Rate 18 18 Blood Pressure 140/66 134/77 Pulse Oximetry 95 96 Fraction of Inspired Oxygen 21 Oxygen Delivery Method Nasal Cannula Oxygen Flow Rate 2 Narrative Exam Narrative: Patient sitting in chair. Appears comfortable. Alert and orient x3. Right knee Aquacel dressing with 1 spot of dried blood. Dressing is intact. Moderate swelling in right knee. Lower leg edema above the ankle with redness. 5/5 right ankle strength. Neurovascular status intact. Bilateral calf soft and nontender. Afebrile. Objective Labs Result Diagrams: 06/05/18 05:44 Assessment & Plan Post-op Postoperative Procedures Operation Date: 06/04/18 15:15 Actual Procedures Side Surgeon p Unicompartment Knee Arthroplasty-Medial Right Marin Rodriguez MD postop day 3. Patient mentions that lower leg swelling is common for him. The redness above his ankle is always present and not new. Continue physical therapy. Continue DVT prophylaxis with aspirin. Continue pain medication as needed. Plan is to discharge to [facility] in [place] tomorrow. Follow up in the office on 06/16/2018 at 2:30 p.m. at the [facility] office.
--- NOTE | 2018-06-07 11:25 | PT.IPTN ---
Current Diagnoses Unilateral primary osteoarthritis, right knee (06/05/18) Surgery Performed Operation Date: 06/04/18 15:15 Actual Procedures p Unicompartment Knee Arthroplasty-Medial(Right) - Marin Rodriguez MD Physical Therapy Treatment Note M2 PT-IP Current Condition Start: 06/05/18 12:25 Freq: NEEDED Status: Active Protocol: Document 06/05/18 10:06 AB (Rec: 06/05/18 12:44 AB [id number]) Physical Therapy Current Condition Current Condition Evaluation Date 06/05/18 Treatment Diagnosis s/p R medial compartment knee replacement Onset Date 06/04/18 Weight Bearing Status Weight Bearing Status Weight Bear as Tolerated M3 PT-IP Subjective Start: 06/05/18 12:25 Freq: NEEDED Status: Active Protocol: Document 06/07/18 11:25 GGD (Rec: 06/07/18 12:29 GGD [id number]) Subjective Physical Therapy Visit Type Type Treatment Note Visit Start Time 10:55 Visit Stop Time 11:25 Total Visit Minutes 30 Number of FRONT END SPECIALIST Visits 3 Physical Therapy Visit Comments Patient Comments Pt feels better today. Therapy Pain Assessment Pain When Pain Assessed At Rest Pain Present Pain Present Denied Pain Location Right Knee Intensity 2 Scale Used Numeric (1 - 10) M4 PT-IP Mobility and Gait Start: 06/05/18 12:25 Freq: NEEDED Status: Active Protocol: Document 06/07/18 11:25 GGD (Rec: 06/07/18 12:29 GGD [id number]) PT-Transfer Assessment Sit to and From Stand Sit to and from Stand Contact Guard Assistance 1 Person Assistance Use of Upper Extremities Equipment Transfer Assistive Device Gait Belt Front Wheeled Walker Transfers Transfer Destination Toilet Transfer Ability Level of Assist Contact Guard Assistance Use of Upper Extremities Comments Mobility Comments Pt up to chair with NSG. Pt in toilet with call light in reach and RN informed. Gait Assessment Gait Gait Assistance Required: Contact Guard Assist 1 Person Assist Distance (Feet) 80 Assistive Devices Assistive Device Gait Belt Front Wheeled Walker Factors Limiting Gait Function Factors Limiting Gait Function Decreased Strength Limited Range of Motion Pain Poor Safety Awareness M5 PT-IP Objective Assessments Start: 06/05/18 12:25 Freq: NEEDED Status: Active Protocol: Document 06/05/18 10:06 AB (Rec: 06/05/18 12:44 AB [id number]) Orientation Orientation/Cognition Level of Alertness Alert Orientation Name Age Birthday Month Date Year Day of Week Place Situation Safety Awareness Decreased Safety Awareness Gross Range of Motion Lower Extremity ROM Assessment Bilaterally Impaired Strength Lower Extremity Strength Assessment Bilaterally Impaired Comments Strength Comments RLE weaker than LLE RLE 3-/5 LLE 4-/5 M6 PT-IP Treatment Start: 06/05/18 12:25 Freq: NEEDED Status: Active Protocol: Document 06/07/18 11:25 GGD (Rec: 06/07/18 12:29 GGD [id number]) Physical Therapy Treatment Exercises Exercises Ankle Pumps Quad Sets Heel Slides Straight Leg Raises Short Arc Quads Passive Knee Extension Hang Seated Knee Flexion/Extension Education Education Provided Post-Op Packet Safety M7 PT-IP Assessment and Plan Start: 06/05/18 12:25 Freq: NEEDED Status: Active Protocol: Document 06/07/18 11:25 GGD (Rec: 06/07/18 12:29 GGD [id number]) PT Summary Assessment and Plan Summary Assessment Summary Pt is improving slowly with mobility. He is progressing with gait and transfers. He has heavy use of UE for gait on FWW. Frequency of Treatment Frequency Of Treatment Twice a Day Treatment Plan Other Recommendations and Next Treatment ambulation, strengthening Focus Recommendations To Nursing Amount of Assist Needed 1 Person Assist Discharge Recommendations PT Discharge Recommendations SNF Rehab
--- NOTE | 2018-06-07 11:33 | PC.NURSE ---
AM NOTE - up to chair this am for breakfast, 2l 95%, removed this am and sat 92%, enc use IS, pain 1-2 on scale 0/10 r knee, given oxycodone 5mg with scheduled tylenol this am for phys therapy, discussed constipation and added mom to scheduled laxatives this am and pt later am had x2 bm, 1+ pedal edema, venous staining humberto savage dsaleksander d,i w/shadow drainage within margins.
--- NOTE | 2018-06-07 13:06 | CM.DPC ---
DCP Cont: Updated pt w/information from [facility] [place]; likely DC Saturday to this [facility] [place] and brother Khris and another friend will transport there. Pt will ask them to pick him u at approx 1300 tomorrow. PASSR completed. See last note for details on coordination w/[facility] [place]. HALEY carr. JW
--- NOTE | 2018-06-07 15:22 | PT.IPTN ---
Current Diagnoses Unilateral primary osteoarthritis, right knee (06/05/18) Surgery Performed Operation Date: 06/04/18 15:15 Actual Procedures p Unicompartment Knee Arthroplasty-Medial(Right) - Marin Rodriguez MD Physical Therapy Treatment Note M2 PT-IP Current Condition Start: 06/05/18 12:25 Freq: NEEDED Status: Active Protocol: Document 06/05/18 10:06 AB (Rec: 06/05/18 12:44 AB [id number]) Physical Therapy Current Condition Current Condition Evaluation Date 06/05/18 Treatment Diagnosis s/p R medial compartment knee replacement Onset Date 06/04/18 Weight Bearing Status Weight Bearing Status Weight Bear as Tolerated M3 PT-IP Subjective Start: 06/05/18 12:25 Freq: NEEDED Status: Active Protocol: Document 06/07/18 15:11 GGD (Rec: 06/07/18 15:22 GGD [id number]) Subjective Physical Therapy Visit Type Type Treatment Note Visit Start Time 14:40 Visit Stop Time 15:05 Total Visit Minutes 25 Number of DIRECTOR OF CARDIOPULMONARY SERVICES Visits 4 Physical Therapy Visit Comments Patient Comments Pt states he is tired. Therapy Pain Assessment Pain When Pain Assessed At Rest Pain Present Pain Present Denied Pain M4 PT-IP Mobility and Gait Start: 06/05/18 12:25 Freq: NEEDED Status: Active Protocol: Document 06/07/18 15:11 GGD (Rec: 06/07/18 15:22 GGD [id number]) PT-Transfer Assessment Sit to and From Stand Sit to and from Stand Contact Guard Assistance Use of Upper Extremities Equipment Transfer Assistive Device Front Wheeled Walker Transfers Transfer Destination Chair Comments Mobility Comments Pt needs assist for controlled sit. Gait Assessment Gait Gait Assistance Required: Contact Guard Assist Distance (Feet) 120 Able to Maintain Weight Bearing Status Yes During Gait Assistive Devices Assistive Device Gait Belt Front Wheeled Walker Gait Deviations General Gait Pattern Antalgic Decreased Stride Length Decreased Feet Clearance Factors Limiting Gait Function Factors Limiting Gait Function Decreased Strength Limited Range of Motion Pain M5 PT-IP Objective Assessments Start: 06/05/18 12:25 Freq: NEEDED Status: Active Protocol: Document 06/05/18 10:06 AB (Rec: 06/05/18 12:44 AB [id number]) Orientation Orientation/Cognition Level of Alertness Alert Orientation Name Age Birthday Month Date Year Day of Week Place Situation Safety Awareness Decreased Safety Awareness Gross Range of Motion Lower Extremity ROM Assessment Bilaterally Impaired Strength Lower Extremity Strength Assessment Bilaterally Impaired Comments Strength Comments RLE weaker than LLE RLE 3-/5 LLE 4-/5 M6 PT-IP Treatment Start: 06/05/18 12:25 Freq: NEEDED Status: Active Protocol: Document 06/07/18 15:11 GGD (Rec: 06/07/18 15:22 GGD [id number]) Physical Therapy Treatment Exercises Exercises Ankle Pumps Quad Sets Straight Leg Raises Short Arc Quads Seated Knee Flexion/Extension M7 PT-IP Assessment and Plan Start: 06/05/18 12:25 Freq: NEEDED Status: Active Protocol: Document 06/07/18 15:11 GGD (Rec: 06/07/18 15:22 GG [id number]) PT Summary Assessment and Plan Frequency of Treatment Frequency Of Treatment Twice a Day Treatment Plan Physical Therapy Treatment Plan Bed Mobility Training Transfer Training Gait Training Therapeutic Exercise Balance Retraining Post Op Education Discharge Planning Hot or Cold Pack Neuromuscular Re-ed Coordination Retraining Manual Therapy Other Recommendations and Next Treatment ambulation, strengthening Focus Recommendations To Nursing Amount of Assist Needed Standby Assistance Discharge Recommendations PT Discharge Recommendations SNF Rehab
[2018-06-08 05:19] VITALS: BP 117/53; PULSE 86; RESP 22; TEMP 36.4; O2SAT 96
[2018-06-08 05:58] VITALS: PULSE 74; RESP 16; O2SAT 95
[2018-06-08] MEDS: IPRATROPIUM HFA 1 PUFF INH (05:58)
--- NOTE | 2018-06-08 06:54 | PC.NURSE ---
Patient refused to void. Said he didn't need to at this time.
--- NOTE | 2018-06-08 07:57 | P.DS_ITS ---
History of Present Illness Date Patient Seen: 06/08/18 Time Patient Seen: 07:56 Chief complaint: [id number] RIGHT KNEE MEDIAL COMPARTMENT ARTHROPLASTY Narrative: Better pain control today. He is mobilizing better with physical therapy but still requiring assist. Discharge Providers Date of admission: 06/05/18 15:25 Primary care physician: Nikolas Guy MD Consults: 06/04/18 18:07 Consult to Discharge Planning Routine Comment: Consult to Physical Therapy Evaluate & Treat Comment: Physician Instructions: postop TKA protocol Consult to Respiratory Therapy Evaluate & Treat Comment: Physician Instructions: Evaluate and treat Discharge provider: Remberto Licona MD Summary Discharge Diagnosis: Right knee osteoarthritis Hospital Course: He was brought to the operating room on 06/04/2018 where he underwent a right knee unicompartmental arthroplasty. He was very slow to mobilize and requiring assistance. It was felt that he would be best served by nursing home prior to discharge home. Exam Vital Signs (past 8 hours): - 06/08/18 05:19 06/08/18 05:58 Temperature 97.6 F Pulse Rate 86 74 Respiratory Rate 22 16 Blood Pressure 117/53 L Pulse Oximetry 96 95 Fraction of Inspired Oxygen 21 Oxygen Delivery Method Room Air Oxygen Flow Rate 2 Const Orientation: alert and oriented x3 Extrem Other: Right knee minimal dry drainage on dressing. Soft calf. Easily wiggles toes. 1+ dorsalis pedis pulse. He does have some venous stasis changes from the distal 1/3 of the tibia down.. This is his baseline with no change. Objective Labs Result Diagrams: 06/05/18 05:44 Discharge Plan Discharge Plan Patient Disposition: [facility] Other facility: [facility] Transportation: Private vehicle Consult as needed: Dental, Hearing, Mental health, Podiatry and Vision Discharge comment: Follow-up in [address] Rodriguez. I certify the postop hospital nursing home care is medically necessary on a continuing basis for any conditions for which he/ she received care during this hospitalization.: Yes The receiving facility has agreed to accept transfer and provide medical treatment.: Yes Discharge Med Rec/Prescriptions Prescriptions: New docusate sodium 100 mg Capsule 100 mg PO BID PRN (Reason: constipation) Qty: 30 RF: 0 oxycodone 5 mg Tablet 5 mg PO Q3HR PRN (Reason: Pain, Moderate (4-6)) Qty: 30 RF: 0 aspirin 81 mg Tablet,Delayed Release (Dr/Ec) 81 mg PO BID Qty: 30 RF: 0 Continue losartan 50 mg Tablet 25 mg PO DAILY RF: 0 torsemide 20 mg Tablet 20 mg PO DAILY RF: 0 mirtazapine 30 mg Tablet 30 mg PO DAILY PRN (Reason: Sleep) RF: 0 levalbuterol tartrate [Xopenex HFA] 45 mcg/actuation Hfa Aerosol Inhaler 2 puff INHALATION Q4-6H PRN (Reason: COPD) RF: 0 ipratropium bromide [Atrovent HFA] 17 mcg/actuation Hfa Aerosol Inhaler 1 puff INHALATION BID RF: 0 potassium chloride 20 mEq Tablet Extended Release 20 meq PO DAILY RF: 0 beclomethasone dipropionate [Qvar RediHaler] 40 mcg/actuation Hfa Aerosol Breath Activated 1 puff INHALATION BID RF: 0 Follow up/Referrals: Nikolas Guy MD [Primary Care Provider] - Discharge Health Status Brief summary of current health status: See history and physical Multidrug resistant organism: No MDRO Precautions: Mcdaniel Provider Discharge Instructions Diet: Diet as Tolerated Liquid consistency: Normal/Thin Food texture: Regular Activity: Weight bear as tolerated Skin/Wound/Dressing Care Dressing: Keep dressing clean dry and intact. Okay to shower with dressing on. [facility] Reason for rehabilitation: Post-operative therapy Rehab type: Physical therapy, Occupational therapy and Speech therapy Discharge Data Primary Care Provider: Nikolas Guy Attending Provider: Marin Rodriguez Admit Date/Time: 06/05/18 15:25
[2018-06-08 08:23] VITALS: BP 139/63; PULSE 82; RESP 17; TEMP 36.9; O2SAT 94
--- NOTE | 2018-06-08 08:41 | CM.DPC ---
DCP/continued: Reviewed chart. Orders received this AM for patient to d/c to SNF. Current d/c plan is for patient to go to [facility] in [place]. Met with patient to confirm plan. Patient alert and oriented and confirms plan. Patient's friend is picking him up at 1:00pm. Orders obtained and faxed to [facility] [phone]. SCRAP CRUSHER placed call to facility and spoke with Pippa. She confirms that patient's name on board for admit today. She requests that SCRAP CRUSHER speak with admit at noon to confirm. SCRAP CRUSHER left message with admit at [facility] re: d/c today. P: Anticipate d/c to [facility] today. Friend to pick patient up at 1:00pm. RN aware. SCRAP CRUSHER to confirm with admit at facility at noon. ALICE Sorensen
[2018-06-08] MEDS: DOCUSATE 100 MG CAPSULE PO (08:59)
[2018-06-08] MEDS: ACETAMINOPHEN 325 MG TABLET 975 MG PO (08:59)
[2018-06-08] MEDS: ASPIRIN EC 81 MG TABLET PO (09:00)
[2018-06-08] MEDS: TORSEMIDE 10 MG TABLET 20 MG PO (09:00)
[2018-06-08] MEDS: LOSARTAN 25 MG TABLET PO (09:00)
[2018-06-08] MEDS: POTASSIUM CHLORIDE 20 MEQ TAB PO (09:01)
[2018-06-08] MEDS: SENNOSIDES 8.6 MG TABLET PO (09:02)
--- NOTE | 2018-06-08 12:51 | CM.DPC ---
DCP/continued: Placed call to admit at [facility], spoke with Zakia. She confirms that they can accept patient today and that orders have been received. P: [facility] today via private auto. ALICE Sorensen
--- NOTE | 2018-06-08 14:20 | PC.NURSE ---
Transfer: Pt transfered to [facility]. Pt reports no concerns about going to the facility. Aquacel dressing w/spot of drainage and intact. Plain tylenol is effective for pain control. Report called to [facility] admitting nurse for facility. Reviewed hospital course, adl's, skin condition, pt sleeping in a chair instead of the bed since he is unable to tolerate a cpap/bipap machine. Tylenol for pain. Questions answered. Zakia can also call this nurse if additional information is needed prior to this technical writer leaving at 1530. Pt transfered to facility via his friends vehicle.
== END 2018-06-08 13:30 | DRG 470 ==
LOC: OR 15:32
PROVIDERS: Admitting Provider Orthopaedic Surgery; PCP Internal Medicine; Visit Provider Orthopaedic Surgery
PROC: (CPT 27446; principal; 2018-06-04 15:15)
DX: M17.11 Unilateral primary osteoarthritis, right knee (principal); Z68.41 Body mass index [BMI] 40.0-44.9, adult; Z86.73 Personal history of transient ischemic attack (TIA), and cerebral infarction without residual deficits; I10 Essential (primary) hypertension; E11.9 Type 2 diabetes mellitus without complications; J44.9 Chronic obstructive pulmonary disease, unspecified; Z87.891 Personal history of nicotine dependence; G47.33 Obstructive sleep apnea (adult) (pediatric); F41.9 Anxiety disorder, unspecified; F32.9 Major depressive disorder, single episode, unspecified; E66.01 Morbid (severe) obesity due to excess calories; I48.0 Paroxysmal atrial fibrillation; N40.0 Benign prostatic hyperplasia without lower urinary tract symptoms; R60.0 Localized edema
CPT/HCPCS: 36415; 73560; 85014; 85018; 94640; 94760; 94762; 97110; 97116; 97162; 97530; C1776; C9290; J0690; J1100; J2250; J2405; J2704; J3010; J7613

== ENCOUNTER 2018-12-31 10:01 | Inpatient (IN) | payer MEDICARE, OTHER, SELFPAY ==
[2018-06-04 18:40] VITALS: BMI 42.8
[2018-12-23 14:57] VITALS: BMI 41.3
[2018-12-31] VITALS (19 sets, daily range): BP systolic 103–148; BP diastolic 47–80; PULSE 65–81; RESP 12–22; TEMP 36.2–37.1; O2SAT 90–99; BMI 40.2
--- NOTE | 2018-12-31 10:42 | PM.PREOP ---
Pre-operative Note Interval Note History & Physical reviewed/Exam performed by Physician: Yes Changes to H&P: Yes H&P completed within 30 days and has changed as indicated here:: Left leg swelling and erythema is significantly improved. White count was 11.8. No signs of cellulitis. The patient did fall coming into the hospital. He has some increased knee pain but no evidence of significant injury on exam.
[2018-12-31] MEDS: LACTATED RINGERS 1,000 ML 42 ML IV ×2 (10:54→13:13)
[2018-12-31] MEDS: ACETAMINOPHEN 325 MG TABLET 975 MG PO ×3 (10:55→21:07)
[2018-12-31] MEDS: PREGABALIN 75 MG CAPSULE PO (10:55)
--- NOTE | 2018-12-31 10:55 | PM.OP.1 ---
Operative Date/Time/Diagnoses Date of procedure: 12/31/18 Time of procedure: 13:24 Pre-op diagnosis: Left knee medial compartment osteoarthritis Post-op diagnosis: same Procedure & Clinicians Procedure: Left medial compartment arthroplasty Same procedure as scheduled: Yes Indications: The patient presents today for medial compartment arthroplasty after failure of conservative treatment. The nature of the procedure including the risks and benefits, alternatives, postoperative course and expected outcome were discussed and all questions answered. Consent was obtained. Operative site confirmed and marked. Surgeon: Marin Rodriguez Food And Beverage Checker: Joe Wallace Anesthesia Type: General and Local Operative Notes Findings: Severe medial compartment osteoarthritis. Closure Type: primary Specimen(s): none sent Prosthetic devices, grafts, tissues, transplants, or devices: ZUK: E femoral component, 4 tibial component and 8 mm polyethylene spacer. Applied: implant(s) Estimated Blood Loss (mL): 10 Blood products transfused: none Tourniquet time (min): 45 Procedure in detail: The patient was taken to the operative suite and placed under general anesthesia. The patient received prophylactic antibiotics 1 g of IV tranexamic acid prior to surgery. The lateral aspect of the leg was prepped and the knee injected with 20 mL of 1% lidocaine with epinephrine. The leg was prepped and draped in usual sterile fashion. The leg was exsanguinated with an Esmarch dressing and the tourniquet raised to 250 torr. A 10 cm medial parapatellar incision and arthrotomy was then made. The anterior aspect of the fat pad and medial meniscus was resected. A small amount of anterior tibial boss was resected with a oscillating saw. The knee was then extended and the alignment guide placed. The distal femoral and proximal tibial cutting guides were then pinned into place. The distal femoral cut was made in extension. The proximal tibial cut was made in flexion. All remaining meniscus was excised. Gaps were checked with blocks. Soft tissues were then injected with a combination of 40 mL of quarter percent Marcaine with epinephrine, 20 mL of Exparel. The femur was sized and the appropriate cutting guide placed. The peg holes were drilled and chamfer cuts made. Next the tibia was sized and drilled. Trial components were then placed. The knee had good mandaeism of soft tissue tension without over correction. Range of motion was full. The trial components were removed. The knee was cleansed with Pulsavac irrigation and dried. The components were then cemented with high viscosity vacuum mixed bone cement. The knee was held in extension until the cement had adequately cured. The knee was then irrigated and inspected for any further debris. The extensor mechanism was closed at 90? of flexion with a few interrupted #1 Vicryl sutures and a running O V-LOC suture. The knee was then filled with 50 mL of solution containing 1 g of tranexamic acid and 10 mL of 0.5% Marcaine. The subcutaneous tissue was closed with 2-0 Vicryl. The skin was closed with a running 3 0 V-LOC suture and surgical adhesive. An Aquacel dressing was applied. The leg was then wrapped with an Salomon which will be kept on for the first 24 hours. The patient tolerated the procedure well and was returned to recovery room in good condition. Complications: none Condition: stable Disposition: PACU Plan for aftercare: Patient will be admitted overnight for observation. He does have 30+ stairs to walk up at his apartment. He ended up going to rehabilitation after his 1st medial compartment arthroplasty.
[2018-12-31] MEDS: CELECOXIB 200 MG CAPSULE PO (10:56)
--- NOTE | 2018-12-31 11:20 | SUR.PREOP ---
pt states he fell coming into the hospital walker leg got caught on door sill, slight abrasion noted on rt knee , pt fell at 0945, dr caballero notified no actions taken
--- NOTE | 2018-12-31 11:30 | DI.RAD.S_ITS ---
PROCEDURE: XR KNEE LT 1TO2V INDICATIONS: UKA TECHNIQUE: 2 view(s) of the knee acquired. COMPARISON: [facility], CR, XR KNEE RT 1TO2V, 06/04/2018, 17:39. FINDINGS: Bones: Patient is status post left knee joint medial unicompartmental hemiarthroplasty. Hardware components are in expected positions. Visualized bony structures are intact. Soft tissues: Overlying postoperative changes are noted. IMPRESSION: Normal alignment established after medial left knee joint hemiarthroplasty, with a small amount of gas in the suprapatellar bursal space. Dictated by: Aren Hill M.D. on 12/31/2018 at 14:27 Approved by: Aren Hill M.D. on 12/31/2018 at 14:28
[2018-12-31] MEDS: CEFAZOLIN 2 GM/100 ML FROZ.PIGGY IV ×2 (12:20→20:55)
[2018-12-31] MEDS: BUPIVACAINE LIPOSOME 266 MG/20 ML VIAL INJ (12:42)
[2018-12-31] MEDS: LIDOCAINE 1% W/EPI INJ 20 ML INJ (12:43)
[2018-12-31] MEDS: BUPIVACAINE 0.5% W/ EPI (PF) 10 ML, TRANEXAMIC ACID 1,000 MG, SODIUM CHLORIDE 0.9% 20 ML INJ (12:43)
[2018-12-31] MEDS: BUPIVACAINE 0.25% W/ EPI 30 ML VIAL 40 ML INJ (12:44)
[2018-12-31] MEDS: TRANEXAMIC ACID 1,000 MG VIAL 1000 MG INJ (13:12)
--- NOTE | 2018-12-31 14:18 | SUR.PHASEI ---
1350 late entry Lung sounds: Expiratory throughout. 1419 In OPD, on O2 at 2LNP, instructed and used incentive spirometer; coughed up thick, horn mucous plug; states this is normal for him with deep breaths. Alert/oriented
--- NOTE | 2018-12-31 14:34 | SUR.PHASEII ---
Awaiting room clean; floor will notify us when it is ready. Brother at bedside. Patient has gross motion/sensation in LE. currently on O2 at 1LNP. Oriented, comfortable.
--- NOTE | 2018-12-31 15:02 | SUR.PHASEII ---
Brother stated that patient was staying overnight; found to be true upon further investigation. Patient returned to PACU for tele monitor. Valuables will be taken to acute care to be locked up with coordinator. Phone in Bipap bag, patient aware. Clothing bags and Bipap to room with patient. Meal ordered.
--- NOTE | 2018-12-31 15:42 | SUR.PHASEII ---
1515 to room 230, bed down and locked, call light within reach. patient A&O, Stable, talkative, cheerful, repeatedly voices how much he likes the care at [facility]. Tolerated pudding and fluids well. Skin warm and dry, resp even and regular. Valuables bag given to Zheng Garcia RN (coordinator). Belongings to room as previously noted. Dressing remains CDI, foot warm, able to raise legs, buttocks off bed. Report given in room. No question/concerns.
[2018-12-31] MEDS: LACTATED RINGERS 1,000 ML 125 ML IV (17:41)
[2018-12-31] MEDS: OXYCODONE IR 5 MG TABLET PO ×2 (17:43→23:45)
[2018-12-31] MEDS: IPRATROPIUM HFA 1 PUFF INH (18:02)
[2018-12-31] MEDS: ASPIRIN EC 81 MG TABLET PO (21:08)
[2018-12-31] MEDS: MIRTAZAPINE 15 MG TABLET 30 MG PO (21:09)
--- NOTE | 2018-12-31 22:00 | PC.NURSE ---
Evening Shift Note- Patient arrived to room from PACU via stretcher at 1530. Oriented patient to bed and bed controls, room, bathroom, lights, phone, menu, and call everett/tv remote. Admission questions completed, home medications, reviewed, and physical assessment done. RT called to set up bipap. safety measures in place. Patient agrees to call for assistance. bed alarm activated. call everett and phone within reach. will continue to monitor.
[2019-01-01] VITALS (9 sets, daily range): BP systolic 114–145; BP diastolic 49–87; PULSE 68–98; RESP 16–18; TEMP 36.3–36.9; O2SAT 90–97
--- NOTE | 2019-01-01 | DI.ECHO.S_ITS ---
[facility]---------+ [facility] +---------+ : : [address] : : : : [id number] : : : : Phone: [phone]---------+ Echocardiogram Report + + :Name: LAMONT CASTILLO Study Date: 01/02/2019 Height: 70 in : :[facility] Weight: 290 lb : : Gender: Male BSA: 2.4 m2 : :: 1940 Age: 78 yrs BP: 134/70 mmHg: :Reason For Study: Cardiomegaly : : Performed By: Pat Torres : :Referring: MIGEL BARLOW : + + Interpretation Summary The left ventricle is normal in size. The ejection fraction is estimated to be 65-70%. The right ventricle is grossly normal size. The right ventricular systolic function is normal. Aortic valve mild to moderately calcified with mild to moderately decreased mobility. The peak aortic velocity is 2.7 m/sec. The aortic valve mean gradient is 13 mmHg. The calculated aortic valve area is 1.6 cm2. There is mild aortic stenosis. There is mild to moderate tricuspid regurgitation. The right ventricular systolic pressure is estimated to be at least 65 mmHg based on an estimated right atrial pressure of 15 mm Hg. There is severe pulmonary hypertension. The aortic root is mildly dilated. The ascending aorta is mildly enlarged. The aortic arch is mildly enlarged. Procedure: A two-dimensional transthoracic echocardiogram with color flow and Doppler was performed. The study quality was technically adequate. There is no prior echocardiogram noted for this patient. The patient was in normal sinus rhythm during the exam. Left Ventricle: The left ventricle is normal in size. Left ventricular wall thickness is mildly increased. There is no thrombus. The ejection fraction is estimated to be 65-70%. There are no focal wall motion abnormalities. MV E/A: 1.2 Med Peak E' Ilan: 10.2 cm/sec E/E' med: 11.1. Right Ventricle: The right ventricle is grossly normal size. The right ventricular systolic function is normal. Atria: The left atrial size is normal. Right atrial size is normal. The interatrial septum is intact with no evidence for an atrial septal defect. Mitral Valve: The mitral valve is grossly normal. There is trace mitral regurgitation. Aortic Valve: The aortic valve is not well visualized. Aortic valve mild to moderately calcified with mild to moderately decreased mobility. The calculated aortic valve area is 1.6 cm2. The peak aortic velocity is 2.7 m/sec. The aortic valve mean gradient is 13 mmHg. Severity ratio is 0.43. There is no hemodynamically significant valvular aortic stenosis. There is mild aortic stenosis. No aortic regurgitation is present. Tricuspid Valve: The tricuspid valve is normal. There is mild to moderate tricuspid regurgitation. The right ventricular systolic pressure is estimated to be at least 65 mmHg based on an estimated right atrial pressure of 15 mm Hg. There is severe pulmonary hypertension. Pulmonic Valve: The pulmonic valve is not well seen, but is grossly normal. There is trace pulmonic regurgitation. Great Vessels: The aortic root is mildly dilated. The ascending aorta is mildly enlarged. The aortic arch is mildly enlarged. The IVC is dilated (diameter is greater than 2.1 cm) and it collapses less than 50% with a sniff. This suggests a high right atrial pressure of 15 mm Hg. Pericardium/ Pleura There is no pericardial effusion. There is no pleural effusion. MMode/2D Measurements & Calculations LVIDd: 5.3 cm LVOT diam: 2.2 cm LVIDs: 3.2 cm Ao root diam: 4.2 cm FS: 38.4 % Aortic Jxn: 3.1 cm EPSS: 0.39 cm asc Aorta Diam: 4.0 cm IVSd: 1.2 cm Ao Arch Diam (Prox Trans): 3.8 cm LVPWd: 0.85 cm LV sparrow. diameter/BSA (cm/m^2): 2.1 LV sys. diameter/BSA (cm/m^2): 1.3 LA A2 area: 18.6 cm2 RA long axis: 5.6 cm LA A4 area: 25.3 cm2 RA area: 22.9 cm2 LA length (vol): 5.7 cm RA vol: 79.0 ml LA vol: 70.4 ml RA : 32.3 ml/m2 LA vol index: 28.8 ml/m2 IVC diam: 2.2 cm PETERSON (plan): 2.2 cm2 Doppler Measurements & Calculations Ao V2 max: 266.8 cm/sec LVOT Max Ilan: 104.0 cm/sec Ao V2 mean: 159.3 cm/sec LV V1 max P.3 mmHg Ao max P.5 mmHg LV V1 VTI: 22.2 cm Ao mean P.5 mmHg PETERSON(I,D): 1.6 cm2 Ao V2 VTI: 51.2 cm PETERSON(V,D): 1.5 cm2 sev ratio: 0.43 PETERSON indexed to BSA (cm^2/m^2): 0.67 MV E max ilan: 113.2 cm/sec TR max ilan: 355.0 cm/sec MV A max ilan: 94.3 cm/sec TR max P.4 mmHg MV E/A: 1.2 PA V2 max: 113.7 cm/sec Med Peak E' Ilan: 10.2 cm/sec PA V2 mean: 72.9 cm/sec E/E' med: 11.1 PA mean P.5 mmHg Lat Peak E' Ilan: 10.1 cm/sec PA Accel Time: 0.13 sec E/E' lat: 11.2 E/e' average: 11.1 MV dec time: 0.16 sec MV P1/2t: 46.3 msec MV P1/2t max ilan: 112.7 cm/sec SV(LVOT): 84.4 ml MVA(P1/2t): 4.7 cm2 Reading Physician:RIMMA
--- NOTE | 2019-01-01 | DI.RAD.S_ITS ---
PROCEDURE: XR CHEST 1V INDICATIONS: wheezing TECHNIQUE: One view of the chest was acquired. COMPARISON: None. FINDINGS: Surgical changes and devices: None. Lungs and pleura: Mild pulmonary vascular congestion is seen. No focal infiltrate. No pleural effusions or pneumothorax. Mediastinum: Mediastinal contours appear normal. Heart size is enlarged. Bones and chest wall: No suspicious bony lesions. Overlying soft tissues appear unremarkable. IMPRESSION: Cardiomegaly and mild congestion. No focal infiltrate. Dictated by: Andrew Partida M.D. on 01/01/2019 at 17:17 Approved by: Andrew Partida M.D. on 01/01/2019 at 17:18
[2019-01-01] MEDS: CEFAZOLIN 2 GM/100 ML FROZ.PIGGY IV (04:15)
[2019-01-01] MEDS: OXYCODONE IR 5 MG TABLET PO (04:21)
--- NOTE | 2019-01-01 04:38 | PC.NURSE ---
Pt is A and O x 4. O2 sat on RA dropped to high 80's, came up well on 2L fed through BiPAP. Pt also had an inhaler in his bedside table he was using and some enzyme capsules he takes for swelling. Explained that we had to give meds off our Med list or have home meds okayed by Pharmacy. Put the inhaler and capsules in patient med drawer. Pt thinks he needs some PT prior to DC and some home O2.
[2019-01-01 06:20] LABS: Hemoglobin 14.4 g/dL (13.5-17.5)
[2019-01-01] MEDS: IPRATROPIUM HFA 1 PUFF INH (07:37)
[2019-01-01] MEDS: TORSEMIDE 10 MG TABLET 20 MG PO (08:47)
[2019-01-01] MEDS: ASPIRIN EC 81 MG TABLET PO ×2 (08:47→20:35)
[2019-01-01] MEDS: POTASSIUM CHLORIDE 20 MEQ TAB PO (08:47)
[2019-01-01] MEDS: MELOXICAM 7.5 MG TABLET 15 MG PO (08:47)
[2019-01-01] MEDS: ACETAMINOPHEN 325 MG TABLET 975 MG PO ×3 (08:48→20:34)
[2019-01-01] MEDS: LOSARTAN 25 MG TABLET PO (08:48)
[2019-01-01] MEDS: SODIUM CHLORIDE 0.9% FLUSH 10 ML IV ×2 (08:53→20:35)
[2019-01-01] MEDS: LEVALBUTEROL HFA 200 PUFF INH INH (08:53)
--- NOTE | 2019-01-01 09:58 | PT.IIE ---
Current Diagnoses Unilateral primary osteoarthritis, left knee (12/31/18) Surgery Performed Operation Date: 12/31/18 11:30 Actual Procedures p Unicompartment Knee Arthroplasty-Medial(Left) - Marin Rodriguez MD Surgical History (Last Updated 07/24/18 @ 08:01 by Mai Ahmadi RN) Hx of hernia repair (Acute) Hx of tonsillectomy (Acute) S/P right unicompartmental knee replacement (Acute) Status post cataract extraction of both eyes with insertion of intraocular lens (Acute) Medical History (Last Reviewed 12/31/18 @ 16:45 by Prem Chaidez, PT, [place]) Antisocial behavior (Acute) Anxiety (Acute) Arthritis (Acute) BCC (basal cell carcinoma of skin) (Acute) COPD (chronic obstructive pulmonary disease) (Acute) Cellulitis (Acute) Degenerative arthritis of right knee (Acute) Depression (Acute) Diabetes (Acute) Diverticulosis (Acute) Enlarged prostate (Acute) GERD (gastroesophageal reflux disease) (Acute) History of ETOH abuse (Acute) History of stroke (Acute ~1960) Hypertension (Acute) Numbness (Acute) Paroxysmal A-fib (Acute) Pneumonia (Acute) Skin cancer (Acute) Sleep apnea treated with nocturnal BiPAP (Acute) Physical Therapy Inpatient Evaluation/Re-Eval M1 PT/OT-IP Prior Functional Status Start: 12/31/18 16:55 Freq: NEEDED Status: Active Protocol: Document 01/01/19 08:53 RODY (Rec: 01/01/19 09:03 RODY [id number]) Medical Review Prior Functional Status Medical History Reviewed Yes Diet/Fluid Consistency Regular Communication Normal Mobility and Gait Ambulates > 2 blocks withthe use of FWW (outside amb) Uses STC with indoor amb. Single fall in six months while getting in to the hospital (IH 12/31/18). Activities of Daily Living and IADL's Indep. Prior Functional Level (Other details) Lives in a hotel with his brother which he thinks his brother would not be able to give full care support. Social History Household Members family Living Arrangements Apartment/Condo Number of Floors (Floors) Two Floors Number of Stairs To Enter/Railing? 32 steps with rails on each sides Home Environment Standard Height Toilet Employment Status Retired M2 PT-IP Current Condition Start: 12/31/18 16:55 Freq: NEEDED Status: Active Protocol: Document 01/01/19 08:53 EA (Rec: 01/01/19 09:03 EA [id number]) Physical Therapy Current Condition Current Condition Evaluation Date 01/01/19 Treatment Diagnosis s/p left TKA 12/31/18 Weight Bearing Status Weight Bearing Status Weight Bear as Tolerated M3 PT-IP Subjective Start: 12/31/18 16:55 Freq: NEEDED Status: Active Protocol: Document 01/01/19 08:53 EA (Rec: 01/01/19 09:03 EA [id number]) Subjective Physical Therapy Visit Type Type Initial Evaluation Visit Start Time 08:20 Visit Stop Time 09:00 Total Visit Minutes 40 Number of SECURITY SOLUTIONS ENGINEER Visits 0 Physical Therapy Visit Comments Patient Comments Patient agreeable to have breakfast on the chair and get evaluated. Patient Goals Be as independent as he can in all functional mobility. Therapy Pain Assessment Pain When Pain Assessed At Rest Pain Present Pain Present Pain Reported Location Left Knee Intensity 2 Scale Used Numeric (1 - 10) Description Acute Right Knee Intensity 2 Description Acute M4 PT-IP Mobility and Gait Start: 12/31/18 16:55 Freq: NEEDED Status: Active Protocol: Document 01/01/19 08:53 EA (Rec: 01/01/19 09:03 EA [id number]) PT-Bed Mobility Assessment Supine to Sit Supine to Sit Contact Guard Assistance Sit to Supine Sit to Supine Contact Guard Assistance Scooting Scooting to Edge of Bed Contact Guard Assistance PT-Transfer Assessment Sit to and From Stand Sit to and from Stand Minimal Assistance Equipment Transfer Assistive Device Gait Belt Front Wheeled Walker Transfers Transfer Destination Bed Chair Transfer Technique stepping Transfer Ability Level of Assist Contact Guard Assistance Comments Mobility Comments HOB elevated to 30 deg supine <-> sit with CGA. SAO2 check and given supplement of 2L/min BP dropps by 10 mmHg on systole Gait Assessment Gait Gait Assistance Required: Contact Guard Assist Distance (Feet) 6 Able to Maintain Weight Bearing Status Yes During Gait Assistive Devices Assistive Device Gait Belt Front Wheeled Walker Gait Deviations General Gait Pattern Antalgic Step-to Gait Factors Limiting Gait Function Factors Limiting Gait Function Decreased Activity Tolerance Decreased Strength Pain Poor Balance Comments Gait Comments Requires verbal cues with proper 3 point gait sequncing PT-Balance Assessment Sitting Balance and Reactions Static Sitting Balance Ability Good Dynamic Sitting Balance Ability Fair Standing Balance and Reactions Static Standing Balance Ability Fair Dynamic Standing Balance Ability Fair M5 PT-IP Objective Assessments Start: 04/10/19 16:55 Freq: NEEDED Status: Active Protocol: Document 01/01/19 08:53 EA (Rec: 01/01/19 09:03 EA [id number]) Orientation Orientation/Cognition Level of Alertness Alert Orientation Name Age Language Function Ability No Deficits Noted Memory Description No Deficits Noted Gross Range of Motion Upper Extremity ROM Assessment Within Functional Limits Lower Extremity ROM Assessment Left Impaired Impairments at least 0-90 deg Strength Upper Extremity Strength Assessment Within Functional Limits Lower Extremity Strength Assessment Left Impaired Knee at least 3/5 Coordination Assessment Gross Coordination Gross Coordination WNL Sensation Assessment Sensation Gross Sensation WNL Light Touch Intact Proprioception (Position) Intact Sensation Description Paresthesia M6 PT-IP Treatment Start: 12/31/18 16:55 Freq: NEEDED Status: Active Protocol: Document 01/01/19 09:58 EA (Rec: 01/01/19 09:58 EA [id number]) Physical Therapy Treatment Exercises Exercises Ankle Pumps Gluteal Sets Quad Sets Heel Slides Straight Leg Raises Short Arc Quads Passive Knee Extension Hang Seated Knee Flexion/Extension Education Education Provided Precautions Weight Bearing Status Post-Op Packet Safety Other Treatments Other Treatment Performed Transfers and gait practice. M7 PT-IP Assessment and Plan Start: 12/31/18 16:55 Freq: NEEDED Status: Active Protocol: Document 01/01/19 08:53 EA (Rec: 01/01/19 09:03 EA [id number]) PT Summary Assessment and Plan Potential Rehabilitation Potential Good Status of Condition at Evaluation Stable Summary Impairments Pain ROM Strength Balance Bed Mobility Gait Activity Tolerance Assessment Summary Pt demonstrates difficulty with functional transfers and mobility due to LLE weakness, pain, balance dysfunction, and respiratory distress which requires 2L of O2 and mobility assistance for safety at this time. Pt educated with all bed exercises and shows good understanding. Pt is a good candidate fo skilled PT prior SNF discharge destination. Goals Bed Mobility Goal Independent Transfer Goal Independent Gait Goal Independent Gait Distance 50 ft Days to Meet Goals 3 Frequency of Treatment Frequency Of Treatment Twice a Day Treatment Plan Physical Therapy Treatment Plan Bed Mobility Training Transfer Training Gait Training Therapeutic Exercise Balance Retraining Post Op Education Recommendations To Nursing Amount of Assist Needed 1 Person Assist Discharge Recommendations PT Discharge Recommendations SNF Rehab
--- NOTE | 2019-01-01 10:05 | PT.IIE ---
Current Diagnoses Unilateral primary osteoarthritis, left knee (12/31/18) Surgery Performed Operation Date: 12/31/18 11:30 Actual Procedures p Unicompartment Knee Arthroplasty-Medial(Left) - Marin Rodriguez MD Surgical History (Last Updated 07/24/18 @ 08:01 by Mai Ahmadi RN) Hx of hernia repair (Acute) Hx of tonsillectomy (Acute) S/P right unicompartmental knee replacement (Acute) Status post cataract extraction of both eyes with insertion of intraocular lens (Acute) Medical History (Last Reviewed 12/31/18 @ 16:45 by Prem Chaidez, PT, [place]) Antisocial behavior (Acute) Anxiety (Acute) Arthritis (Acute) BCC (basal cell carcinoma of skin) (Acute) COPD (chronic obstructive pulmonary disease) (Acute) Cellulitis (Acute) Degenerative arthritis of right knee (Acute) Depression (Acute) Diabetes (Acute) Diverticulosis (Acute) Enlarged prostate (Acute) GERD (gastroesophageal reflux disease) (Acute) History of ETOH abuse (Acute) History of stroke (Acute ~1960) Hypertension (Acute) Numbness (Acute) Paroxysmal A-fib (Acute) Pneumonia (Acute) Skin cancer (Acute) Sleep apnea treated with nocturnal BiPAP (Acute) Physical Therapy Inpatient Evaluation/Re-Eval M1 PT/OT-IP Prior Functional Status Start: 12/31/18 16:55 Freq: NEEDED Status: Active Protocol: Document 01/01/19 08:53 RODY (Rec: 01/01/19 09:03 RODY [id number]) Medical Review Prior Functional Status Medical History Reviewed Yes Diet/Fluid Consistency Regular Communication Normal Mobility and Gait Ambulates > 2 blocks withthe use of FWW (outside amb) Uses STC with indoor amb. Single fall in six months while getting in to the hospital (IH 12/31/18). Activities of Daily Living and IADL's Indep. Prior Functional Level (Other details) Lives in a hotel with his brother which he thinks his brother would not be able to give full care support. Social History Household Members family Living Arrangements Apartment/Condo Number of Floors (Floors) Two Floors Number of Stairs To Enter/Railing? 32 steps with rails on each sides Home Environment Standard Height Toilet Employment Status Retired M2 PT-IP Current Condition Start: 12/31/18 16:55 Freq: NEEDED Status: Active Protocol: Document 01/01/19 08:53 EA (Rec: 01/01/19 09:03 EA [id number]) Physical Therapy Current Condition Current Condition Evaluation Date 01/01/19 Treatment Diagnosis s/p left medial compartment arthroplasty 12/31/18 Weight Bearing Status Weight Bearing Status Weight Bear as Tolerated M3 PT-IP Subjective Start: 12/31/18 16:55 Freq: NEEDED Status: Active Protocol: Document 01/01/19 08:53 EA (Rec: 01/01/19 09:03 EA [id number]) Subjective Physical Therapy Visit Type Type Initial Evaluation Visit Start Time 08:20 Visit Stop Time 09:00 Total Visit Minutes 40 Number of MANUFACTURING ENGINEER PAINT Visits 0 Physical Therapy Visit Comments Patient Comments Patient agreeale to have breakfast on the chair and get evaluated. Patient Goals Be as independent as he can in all functional mobility. Therapy Pain Assessment Pain When Pain Assessed At Rest Pain Present Pain Present Pain Reported Location Left Knee Intensity 2 Scale Used Numeric (1 - 10) Description Acute Right Knee Intensity 2 Description Acute M4 PT-IP Mobility and Gait Start: 12/31/18 16:55 Freq: NEEDED Status: Active Protocol: Document 01/01/19 08:53 EA (Rec: 01/01/19 09:03 EA [id number]) PT-Bed Mobility Assessment Supine to Sit Supine to Sit Contact Guard Assistance Sit to Supine Sit to Supine Contact Guard Assistance Scooting Scooting to Edge of Bed Contact Guard Assistance PT-Transfer Assessment Sit to and From Stand Sit to and from Stand Minimal Assistance Equipment Transfer Assistive Device Gait Belt Front Wheeled Walker Transfers Transfer Destination Bed Chair Transfer Technique stepping Transfer Ability Level of Assist Contact Guard Assistance Comments Mobility Comments HOB elevated to 30 deg supine <-> sit with CGA. SAO2 check and given supplement of 2L/min BP dropps by 10 mmHg on systole Gait Assessment Gait Gait Assistance Required: Contact Guard Assist Distance (Feet) 6 Able to Maintain Weight Bearing Status Yes During Gait Assistive Devices Assistive Device Gait Belt Front Wheeled Walker Gait Deviations General Gait Pattern Antalgic Step-to Gait Factors Limiting Gait Function Factors Limiting Gait Function Decreased Activity Tolerance Decreased Strength Pain Poor Balance Comments Gait Comments Requires verbal cues with proper 3 point gait sequncing PT-Balance Assessment Sitting Balance and Reactions Static Sitting Balance Ability Good Dynamic Sitting Balance Ability Fair Standing Balance and Reactions Static Standing Balance Ability Fair Dynamic Standing Balance Ability Fair M5 PT-IP Objective Assessments Start: 12/31/18 16:55 Freq: NEEDED Status: Active Protocol: Document 01/01/19 08:53 EA (Rec: 01/01/19 09:03 EA [id number]) Orientation Orientation/Cognition Level of Alertness Alert Orientation Name Age Language Function Ability No Deficits Noted Memory Description No Deficits Noted Gross Range of Motion Upper Extremity ROM Assessment Within Functional Limits Lower Extremity ROM Assessment Left Impaired Impairments at least 0-90 deg Strength Upper Extremity Strength Assessment Within Functional Limits Lower Extremity Strength Assessment Left Impaired Knee at least 3/5 Coordination Assessment Gross Coordination Gross Coordination WNL Sensation Assessment Sensation Gross Sensation WNL Light Touch Intact Proprioception (Position) Intact Sensation Description Paresthesia M6 PT-IP Treatment Start: 12/31/18 16:55 Freq: NEEDED Status: Active Protocol: Document 01/01/19 09:58 EA (Rec: 01/01/19 09:58 EA [id number]) Physical Therapy Treatment Exercises Exercises Ankle Pumps Gluteal Sets Quad Sets Heel Slides Straight Leg Raises Short Arc Quads Passive Knee Extension Hang Seated Knee Flexion/Extension Education Education Provided Precautions Weight Bearing Status Post-Op Packet Safety Other Treatments Other Treatment Performed Transfers and gait practice. M7 PT-IP Assessment and Plan Start: 12/31/18 16:55 Freq: NEEDED Status: Active Protocol: Document 01/01/19 08:53 EA (Rec: 01/01/19 09:03 EA [id number]) PT Summary Assessment and Plan Potential Rehabilitation Potential Good Status of Condition at Evaluation Stable Summary Impairments Pain ROM Strength Balance Bed Mobility Gait Activity Tolerance Assessment Summary Pt demonstrates difficulty with functional transfers and mobility due to LLE weakness, pain, balance dysfunction, and respiratory distress which requires 2L of O2 and mobility assistance for safety at this time. Pt educated with all bed exercises and shows good understanding. Pt is a good candidate for skilled PT prior SNF discharge destination. Goals Bed Mobility Goal Independent Transfer Goal Independent Gait Goal Independent Gait Distance 50 ft Days to Meet Goals 3 Frequency of Treatment Frequency Of Treatment Twice a Day Treatment Plan Physical Therapy Treatment Plan Bed Mobility Training Transfer Training Gait Training Therapeutic Exercise Balance Retraining Post Op Education Recommendations To Nursing Amount of Assist Needed 1 Person Assist Discharge Recommendations PT Discharge Recommendations SNF Rehab
--- NOTE | 2019-01-01 10:19 | PM.PNPO.1 ---
Subjective Date Patient Seen: 01/01/19 Time Patient Seen: 10:20 Interval history: Hospital day 2, postop day 1 following left knee medial unicompartment arthroplasty by Dr. Rodriguez. Patient remained stable orthopedically. He did have desaturation during the night and was up to 4 L nasal O2. He does have a history of COPD and sleep apnea. He does use a CPAP. He was working with PT this morning and did desat with ambulating in room. he states he does not use home oxygen. He does live in the [place] area. he is in a apartment that requires 32 steps to go up to his apartment. He does have a roommate but states he is not going to be any help to him. When he had his right knee surgery done he states he was at [facility] in [place] for about 3 weeks before going home. Exam Vital Signs (past 8 hours): - 01/01/19 04:28 01/01/19 07:48 01/01/19 07:55 Temperature Pulse Rate 85 78 Respiratory Rate 18 16 Blood Pressure 145/53 H Pulse Oximetry 97 97 92 01/01/19 08:00 Temperature 98.2 F Pulse Rate 68 Respiratory Rate 18 Blood Pressure 129/87 Pulse Oximetry 96 Fraction of Inspired Oxygen 21 Oxygen Delivery Method Nasal Cannula,BiPAP Oxygen Flow Rate 2 Narrative Exam Narrative: Alert, oriented no acute distress sitting in chair. I does have nasal oxygen in place. legs. Salomon wrap and dressing to left knee are dry without drainage or inflammation. No calf pain or swelling. Pulses symmetrical. Objective Labs Result Diagrams: 01/01/19 05:07 Labs: Laboratory Results - last 24 hr 01/01/19 05:07 Hgb 14.4 Hct 44.0 Assessment & Plan Post-op Postoperative Procedures Operation Date: 12/31/18 11:30 Actual Procedures Side Surgeon p Unicompartment Knee Arthroplasty-Medial Left Marin Rodriguez MD Patient will work with PT and OT. I did ask the hospitalist to see the patient to evaluate his COPD and desaturation. Patient may need SNF before going home and train planner will evaluate this. Quality VTE Deep Vein Thrombosis/Pulmonary Embolism Present on Admission: No
--- NOTE | 2019-01-01 10:23 | P.PN_ITS ---
Subjective Date Patient Seen: 01/01/19 Time Patient Seen: 10:20 Interval history: Hospital day 2, postop day 1 following left knee medial unicompartment arthroplasty by Dr. Rodriguez. Patient remained stable orthopedically. He did have desaturation during the night and was up to 4 L nasal O2. He does have a history of COPD and sleep apnea. He does use a CPAP. He was working with PT this morning and did desat with ambulating in room. he states he does not use home oxygen. He does live in the [place] area. he is in a apartment that requires 32 steps to go up to his apartment. He does have a roommate but states he is not going to be any help to him. When he had his right knee surgery done he states he was at [facility] in [place] for about 3 weeks before going home. Exam Vital Signs (past 8 hours): - 01/01/19 04:28 01/01/19 07:48 01/01/19 07:55 Temperature Pulse Rate 85 78 Respiratory Rate 18 16 Blood Pressure 145/53 H Pulse Oximetry 97 97 92 01/01/19 08:00 Temperature 98.2 F Pulse Rate 68 Respiratory Rate 18 Blood Pressure 129/87 Pulse Oximetry 96 Fraction of Inspired Oxygen 21 Oxygen Delivery Method Nasal Cannula,BiPAP Oxygen Flow Rate 2 Narrative Exam Narrative: Alert, oriented no acute distress sitting in chair. I does have nasal oxygen in place. legs. Salomon wrap and dressing to left knee are dry without drainage or inflammation. No calf pain or swelling. Pulses symmetrical. Objective Labs Result Diagrams: 01/01/19 05:07 Labs: Laboratory Results - last 24 hr 01/01/19 05:07 Hgb 14.4 Hct 44.0 Assessment & Plan Post-op Postoperative Procedures Operation Date: 12/31/18 11:30 Actual Procedures Side Surgeon p Unicompartment Knee Arthroplasty-Medial Left Marin Rodriguez MD Patient will work with PT and OT. I did ask the hospitalist to see the patient to evaluate his COPD and desaturation. Patient may need SNF before going home and transportation planner will evaluate this. Quality VTE Deep Vein Thrombosis/Pulmonary Embolism Present on Admission: No
--- NOTE | 2019-01-01 14:40 | PT.IPTN ---
Current Diagnoses Unilateral primary osteoarthritis, left knee (12/31/18) Surgery Performed Operation Date: 12/31/18 11:30 Actual Procedures p Unicompartment Knee Arthroplasty-Medial(Left) - Marin Rodriguez MD Physical Therapy Treatment Note M2 PT-IP Current Condition Start: 12/31/18 16:55 Freq: NEEDED Status: Active Protocol: Document 01/01/19 08:53 EA (Rec: 01/01/19 09:03 EA [id number]) Physical Therapy Current Condition Current Condition Evaluation Date 01/01/19 Treatment Diagnosis s/p left medial compartment arthroplasty 12/31/18 Weight Bearing Status Weight Bearing Status Weight Bear as Tolerated M3 PT-IP Subjective Start: 12/31/18 16:55 Freq: NEEDED Status: Active Protocol: Document 01/01/19 14:25 SA (Rec: 01/01/19 14:40 SA [id number]) Subjective Physical Therapy Visit Type Type Treatment Note Visit Start Time 13:30 Visit Stop Time 13:58 Total Visit Minutes 28 Notes Pt up in chair, agreeable to PT. Number of SUPPLY CHAIN ANALYST Visits 1 Physical Therapy Visit Comments Patient Comments Pt states he doesn't think he will be able to walk much. Patient Goals Plans to d/c to SNF prior to home. Therapy Pain Assessment Pain When Pain Assessed During Mobility Pain Present Pain Present Pain Reported Location Left Knee Intensity 7 Scale Used Numeric (1 - 10) Description Acute M4 PT-IP Mobility and Gait Start: 12/31/18 16:55 Freq: NEEDED Status: Active Protocol: Document 01/01/19 14:25 SA (Rec: 01/01/19 14:40 SA [id number]) PT-Bed Mobility Assessment Supine to Sit Supine to Sit Contact Guard Assistance Sit to Supine Sit to Supine Contact Guard Assistance Scooting Scooting to Edge of Bed Contact Guard Assistance PT-Transfer Assessment Sit to and From Stand Sit to and from Stand Contact Guard Assistance Equipment Transfer Assistive Device Gait Belt Front Wheeled Walker Orthotic/Prosthetic Devices or Brace: No Transfers Transfer Destination Chair Transfer Technique Stand Step Pivot Transfer Ability Level of Assist Contact Guard Assistance Comments Mobility Comments Pt CGA with transfers with FWW , limits WBing on LLE and relies heavily on UEs. Gait Assessment Gait Gait Assistance Required: Contact Guard Assist Distance (Feet) 15 Able to Maintain Weight Bearing Status Yes During Gait Assistive Devices Assistive Device Gait Belt Front Wheeled Walker Gait Deviations General Gait Pattern Antalgic Decreased Stride Length Step-to Gait Factors Limiting Gait Function Factors Limiting Gait Function Decreased Activity Tolerance Decreased Strength Pain Poor Balance Comments Gait Comments Pt with step to gait pattern, can partially correct with cues. Pt limits gait distance stating he feels unstable and weak. Rates pain as 8/10 with Wbing. Stair Climbing Assessment Comments Stair Climbing Comments Unable at this time. M5 PT-IP Objective Assessments Start: 12/31/18 16:55 Freq: NEEDED Status: Active Protocol: Document 01/01/19 08:53 EA (Rec: 01/01/19 09:03 EA [id number]) Orientation Orientation/Cognition Level of Alertness Alert Orientation Name Age Language Function Ability No Deficits Noted Memory Description No Deficits Noted Gross Range of Motion Upper Extremity ROM Assessment Within Functional Limits Lower Extremity ROM Assessment Left Impaired Impairments at least 0-90 deg Strength Upper Extremity Strength Assessment Within Functional Limits Lower Extremity Strength Assessment Left Impaired Knee at least 3/5 Coordination Assessment Gross Coordination Gross Coordination WNL Sensation Assessment Sensation Gross Sensation WNL Light Touch Intact Proprioception (Position) Intact Sensation Description Paresthesia M6 PT-IP Treatment Start: 12/31/18 16:55 Freq: NEEDED Status: Active Protocol: Document 01/01/19 14:25 SA (Rec: 01/01/19 14:40 SA [id number]) Physical Therapy Treatment Exercises Exercises Ankle Pumps Heel Slides Short Arc Quads Seated Knee Flexion/Extension Education Education Provided Precautions Weight Bearing Status Post-Op Packet Safety Other Treatments Other Treatment Performed Standing postural correction and PLB technique. 02 sats dropped to 87% on RA, remained above 93% on 2L with mobility . M7 PT-IP Assessment and Plan Start: 12/31/18 16:55 Freq: NEEDED Status: Active Protocol: Document 01/01/19 14:25 SA (Rec: 01/01/19 14:40 SA [id number]) PT Summary Assessment and Plan Summary Assessment Summary Pt self limiting with WBing activity d/t pain. Education on importance of frequent movement for healing and ROM. Pt understands this. Frequency of Treatment Frequency Of Treatment Twice a Day Treatment Plan Physical Therapy Treatment Plan Bed Mobility Training Transfer Training Gait Training Therapeutic Exercise Balance Retraining Post Op Education Recommendations To Nursing Amount of Assist Needed 1 Person Assist Discharge Recommendations PT Discharge Recommendations SNF Rehab
--- NOTE | 2019-01-01 16:13 | PM.CN ---
History of Present Illness Date Patient Seen: 01/01/19 Chief complaint: [id number] LEFT KNEE ARTHROPLASTY Reason for consult: hypoxia Narrative: The patient is a 78-year-old male status post partial left total knee arthroscopic be. Patient was rehabbing today and found to be markedly hypoxic. When he ambulated he desaturated. Patient has a known history of COPD, hypertension, obstructive sleep apnea, obesity hypoventilation, He is not normally on oxygen at home. He has a long history of COPD having greater than a 50 pack year smoking. He does take Xopenex QVAR and Atrovent inhalers at home. He has not been receiving regular nebulizer treatments here in the hospital. The patient denies any cough shortness of breath or chest pain. he states he was in significant pain status post surgery today and could not ambulate and sat back down. The patient has had no recent hospitalizations for COPD. He does recall previously being treated with steroids for COPD exacerbation sometime ago. Sitting during the exam the patient has some baseline wheezing. His oxygen saturation on room air dips to about 90% and quickly resolves to about 94%. I am asked to evaluate him for persistent hypoxia. [facility] Surgical History (Updated 01/01/19 @ 16:34 by Cate Henriquez MD) Hx of hernia repair (Acute) Hx of tonsillectomy (Acute) S/P right unicompartmental knee replacement (Acute) Status post cataract extraction of both eyes with insertion of intraocular lens (Acute) Social History household members: family Smoking Status: Former smoker alcohol intake: former Social History household members: family Smoking Status: Former smoker alcohol intake: former Meds Home Medications Medication Instructions Recorded Confirmed Type Atrovent HFA 1 puff INHALATION BID 05/29/18 12/31/18 History levalbuterol tartrate [Xopenex HFA] 2 puff INHALATION Q4-6H PRN 05/29/18 12/31/18 History losartan 25 mg PO DAILY 05/29/18 12/31/18 History mirtazapine 30 mg PO DAILY PRN 05/29/18 12/31/18 History potassium chloride 20 meq PO DAILY 05/29/18 12/31/18 History torsemide 20 mg PO DAILY 05/29/18 12/31/18 History aspirin 81 mg PO BID #30 tab 06/08/18 12/31/18 Rx Allergies Allergy/AdvReac Type Severity Reaction Status Date / Time Beta-Blockers Allergy Pt does Verified 05/29/18 13:03 (Beta-Adrenergic Bloc not remember Review of Systems Review of Systems All systems reviewed & are unremarkable except as noted in HPI and below Exam Vital Signs (past 8 hours): - 01/01/19 13:00 01/01/19 15:35 Temperature 97.6 F 97.4 F L Pulse Rate 98 H Respiratory Rate 18 18 Blood Pressure 114/49 L 131/59 L Pulse Oximetry 96 97 Fraction of Inspired Oxygen 21 Oxygen Delivery Method Nasal Cannula,BiPAP Oxygen Flow Rate 2 Narrative Exam Narrative: Pleasant elderly male sitting up in a chair with end-expiratory wheeze Lungs:decreased breath sounds with end expiratory wheezing CV:RRR nl Sl s2 Abd: soft/ non tender/ non distended/ obese Ext: left knee with dressing, right lower extremity discolored with dry skin Neuro: Cranial Nerves in tact, Strength symmetric and equal, sensation in tact Objective Labs Result Diagrams: 01/01/19 05:07 Labs: Laboratory Results - last 24 hr 01/01/19 05:07 Hgb 14.4 Hct 44.0 Assessment & Plan (1) COPD with exacerbation: Problem details: The patient is status post left knee arthroscopic. He was hypoxic at rest and hypoxic with activity. The patient has known COPD. He is receiving Xopenex and Atrovent inhalers. Discussed plan of care with the patient. It will switch him to albuterol Atrovent nebulizers. Start him on a low pulse dose of prednisone for 5 days which he is agreeable to. Will add inhaled steroids as well. Current visit: Yes Status: Acute (2) Acute respiratory failure with hypoxia: Problem details: Acute hypoxic respiratory failure, likely multifactorial. Will assess for home oxygen. Continue nebulizers oxygen and steroids Current visit: Yes Status: Acute (3) History of arthroplasty of right knee: Current visit: Yes Status: Acute (4) Paroxysmal atrial fibrillation: Problem details: History of paroxysmal atrial fibrillation, patient is in sinus rhythm, not on anticoagulation Current visit: Yes Status: Acute (5) Morbid obesity: Current visit: Yes Status: Acute (6) Obstructive sleep apnea: Problem details: Patient will continue BiPAP at night. He may require nighttime oxygen as well. Will assess here in the hospital. Current visit: Yes Status: Acute
[2019-01-01] MEDS: ALBUTEROL/IPRATROPIUM 3 ML AMPUL INH (16:52)
[2019-01-01] MEDS: BUDESONIDE 60 PUFF/DEVICE INHALER INH (16:58)
[2019-01-01 17:40] LABS: Add Manual Diff / Slide Review NO; Basophils Absolute Auto 100 /uL (0-100); Basophils Percent Auto 0.8 % (0-2); Eosinophils Absolute Auto 100 /uL (0-450); Eosinophils Percent Auto 0.5 % (2-4); Hematocrit 45.1 % (41-53); Lymphocytes Absolute Auto 5400 /uL (1100-4500); Lymphocytes Percent Auto 32.1 % (25-40); Mean Corpuscular HGB Conc 33.3 % (30-36); Mean Corpuscular Volume 84.1 fL (80-100); Monocytes Absolute Auto 1700 /uL (0-900); Monocytes Percent Auto 9.9 % (3-14); Neutrophils Absolute Auto 9400 /uL (1500-7000); Neutrophils Percent Auto 56.7 % (50-75); Platelet Count 200 X10^3/uL (150-400); Red Blood Cell Count 5.37 X10^6/uL (4.5-5.9); Red Cell Distribution Width 14.4 % (11.6-14.8); White Blood Cell Count 16.7 X10^3/uL (4.5-11.0)
[2019-01-01 17:58] LABS: Blood Urea Nitrogen 25 mg/dL (9-20); Calcium 8.9 mg/dL (8.4-10.2); Carbon Dioxide 35 mmol/L (22-32); Chloride 99 mmol/L (98-107); Estimated Glomerular Filt Rate > 60.0 mL/min (>60); Glucose 97 mg/dL (80-110); HEMOLYSIS < 15 (0-50); Potassium 4.4 mmol/L (3.4-5.1); Sodium 140 mmol/L (137-145)
[2019-01-01 18:17] LABS: B Type Natriuretic Peptide < 100 (<100)
[2019-01-01] MEDS: predniSONE 20 MG TABLET 40 MG PO (18:55)
[2019-01-01] MEDS: MIRTAZAPINE 15 MG TABLET 30 MG PO (20:36)
--- NOTE | 2019-01-01 22:37 | PC.NURSE ---
1530-Received report, bedside safety checks done. assumed care of patient. patient A&Ox, sensation and pulses intact, denies numbness, no tingling. Encouraged w/ROM exercises. 2230-VSS, afebrile. Patient set up w/BiPAP for sleep. Adequate UOP, using urinal independently. on 2 L NC spO2 in the 90s.
[2019-01-02] VITALS (7 sets, daily range): BP systolic 111–140; BP diastolic 43–88; PULSE 59–91; RESP 16–18; TEMP 36.4–37.2; O2SAT 90–94
[2019-01-02] MEDS: MAGNESIUM HYDROXIDE 30 ML UDC PO ×2 (08:07→20:31)
[2019-01-02] MEDS: MELOXICAM 7.5 MG TABLET 15 MG PO (08:28)
[2019-01-02] MEDS: POTASSIUM CHLORIDE 20 MEQ TAB PO (08:28)
[2019-01-02] MEDS: TORSEMIDE 10 MG TABLET 20 MG PO (08:28)
[2019-01-02] MEDS: ASPIRIN EC 81 MG TABLET PO ×2 (08:28→20:25)
[2019-01-02] MEDS: LOSARTAN 25 MG TABLET PO (08:30)
[2019-01-02] MEDS: ACETAMINOPHEN 325 MG TABLET 975 MG PO ×3 (08:31→20:25)
[2019-01-02] MEDS: OXYCODONE IR 5 MG TABLET PO ×2 (08:35→20:29)
[2019-01-02] MEDS: ALBUTEROL/IPRATROPIUM 3 ML AMPUL INH ×2 (08:40→13:41)
[2019-01-02] MEDS: BUDESONIDE 60 PUFF/DEVICE INHALER INH ×2 (08:42→22:07)
--- NOTE | 2019-01-02 09:26 | PM.PNPO.1 ---
Subjective Date Patient Seen: 01/02/19 Time Patient Seen: 09:26 Interval history: POD #2 s/p left uni knee arthroplasty with Dr. Rodriguez. Patient's pain is significantly better than yesterday. He was hypoxic and had a hospitalist consult yesterday. He has been doing nebullizer treatments, using bipap, and change in inhaler treatment and is doing well on room air today. He has been slow to mobilize and has 32 stairs to get up to his apartment with no elevator. Exam Vital Signs (past 8 hours): - 01/02/19 05:03 01/02/19 09:00 01/02/19 09:10 Temperature 97.6 F 98.2 F Pulse Rate 59 L 86 83 Respiratory Rate 16 18 16 Blood Pressure 140/88 134/70 Pulse Oximetry 94 90 L 93 Fraction of Inspired Oxygen 21 Oxygen Delivery Method Room Air Oxygen Flow Rate 0 Narrative Exam Narrative: Patient sitting in bedside chair in NAD. He is alert and oriented x3. Dressing on left knee is CDI. He is able to actively flex and extend his knee. sensation intact light touch throughout bilateral lower extremities. Calves are soft, compressible, nontender bilaterally. Pulses are symmetrical. Objective Labs Result Diagrams: 01/01/19 17:28 01/01/19 17:28 Labs: Laboratory Results - last 24 hr 01/01/19 01/01/19 01/01/19 17:28 17:28 17:28 WBC 16.7 H RBC 5.37 Hgb 15.0 Hct 45.1 MCV 84.1 MCH 28.0 MCHC 33.3 RDW 14.4 Plt Count 200 Neut % (Auto) 56.7 Lymph % (Auto) 32.1 [place] % (Auto) 9.9 Eos % (Auto) 0.5 L Baso % (Auto) 0.8 Neut # (Auto) 9400 H Lymph # (Auto) 5400 H [place] # (Auto) 1700 H Eos # (Auto) 100 Baso # (Auto) 100 Sodium 140 Potassium 4.4 Chloride 99 Carbon Dioxide 35 H BUN 25 H Creatinine 1.00 Estimated GFR > 60.0 BUN/Creatinine Ratio 25.0 H Glucose 97 Calcium 8.9 B-Natriuretic Peptide < 100 Assessment & Plan Post-op (1) Obstructive sleep apnea: (2) Morbid obesity: (3) Paroxysmal atrial fibrillation: (4) Acute respiratory failure with hypoxia: (5) COPD with exacerbation: Postoperative Procedures Operation Date: 12/31/18 11:30 Actual Procedures Side Surgeon p Unicompartment Knee Arthroplasty-Medial Left Marin Rodriguez MD Patient will continue to mobilize with PT. Continue hospitalist recommendations for COPD treatment. Given multiple medical comorbidities and mobilization issues he will likely continue to need a SNF for continued care. Quality VTE Deep Vein Thrombosis/Pulmonary Embolism Present on Admission: No
[2019-01-02] MEDS: DOCUSATE 100 MG CAPSULE PO (11:05)
[2019-01-02] MEDS: SODIUM CHLORIDE 0.9% FLUSH 10 ML IV ×2 (11:12→20:26)
[2019-01-02] MEDS: predniSONE 20 MG TABLET 40 MG PO (11:16)
--- NOTE | 2019-01-02 11:55 | CM.DANOTE ---
Addendum entered by Bre Galvez LPN 01/02/19 14:15: Мария/Andra confirms acceptance. Needs PT and OT notes faxed. OT Eva seeing pt now and then these will be faxed. Мария says all will be ready for weekend. Admission nurse Zakia will be the contact at tel # [phone]. Same fax # as noted below. Pt is updated. Original Note: Discharge Planning/Care Management DCP: assessment: case received, EMR reviewed and met with pt. Introduced self and role. Pt is a 78 year old male who admitted 12/31 for a planned L knee surgery/uni. Payer: Medicare and out of state [employer]: Admission status: INPT: confirmed by UR JAMES Mccloud. Surgeon: Dr. Rodriguez Principal Developer: hospitalist: Dr. Henriquez. Pt identifies his d/c plan as snf and would very much like to go to [facility]. He was there for rehab May 2018: after [facility] stay for R knee surgery. Referral: given by phone and fax to Мария: her admission line: [phone] and fax: [phone]. Мария is reviewing and will call back. She confirms they accept pt's over the weekend. Pt states his brother Nestor will be driving him to the facility at d/c. Will be following. CM Discharge Assessment Start: 01/02/19 11:37 Freq: Status: Active Protocol: Document 01/02/19 11:37 ITV (Rec: 01/02/19 11:53 ITV [id number]) Discharge Planning Assessment History Provided By Patient Medical Record Has Patient been admitted in last 30 No days? Prior Living Arrangements Apartment/Condo Comment lives with his brother Nestor Rabago 32 steps to the second floor of the apt building..Nestor confirms the elevator is not functional and due to codes will likely not be repaired. Household Members family Comment brother Independent with ADL's Yes Is patient alert and oriented? Yes Transportation Arrangement Family vs Taxi Medicare Choice List Provided Yes SNF/HH Preference [facility]: [facility] Has Agency SNF been contacted Yes Whiteboard Updated in Patient Room with Yes name and ext. # of Air Intercept Controller Supervisor Review Status In Process Next Review Type Continued Stay Review Pre-Anesthesia Assessment Start: 12/23/18 14:57 Freq: Status: Complete Protocol: Document 12/23/18 14:57 CAB (Rec: 12/23/18 15:04 CAB [id number]) Pre-Anesthesia Assessment Patient Information Reviewed Via Chart Review H&P Completed Within 30 Days Yes Diagnostic Results BMP/CMP CBC Comment Outside labs scanned to record , WBCs 13.3 Primary Care Provider Nikolas Guy Seen Specialist in Last 12 Months Yes Specialist Seen Geography Department Chair Orthopedist Primary Language Burundian Preferred Language Burundian Adult Education Manager Required No Height 180.34 cm Weight 134.263 kg Body Mass Index (BMI) 41.3 Hearing Ability Normal Visual Assist Glasses Magnifying Glass Dentition Type Teeth, Natural Present Teeth, Missing Barriers to Learning None Other Aids No Hx Anesthesia Reactions No Hx Family Anesthesia Reaction No Hx Malignant Hyperthermia No Hx Blood Transfusions No Anesthesia Review Requested No Consumer Lender No alcohol intake former Alcohol Intake Frequency Other: Sober x 35 years Smoking Status Former smoker Tobacco type cigarettes how long ago did patient quit smoking Quit 1986 x 33 x 2-3 ppd Substance Use Type does not use Pain Present Pain Reported Musculoskeletal Symptoms Abnormal Gait Difficulty Walking Joint Pain History of Falling (Recent or History of No ) Patient is completely paralyzed or No completely immobile Prosthesis or Orthotic Device Cane Front Wheel Walker Is patient on oxygen? No Does patient have MCCLURE/SOB No Hx Sleep Apnea Yes CPAP/BIPAP use prescribed and used routinely Currently Taking a Beta Brian No Can You Climb a Flight of Stairs Without Yes SOB Hx Chest Pain No Hx SOB No Hx Syncope or Dizziness No Anti-Coagulant Therapy No Has a Deputy Attorney General No Cardiac Testing Yes: ECHO 12/10/17 Hx Pacemaker/ICD No Pacemaker Rep Required? No Cardiac Clearance Received Not Applicable Diet Type At Home Regular dysphagia Yes: Occasionally Bladder Pattern Frequency Urgency Urinary Catheter Present No Hx Urinary Self Catheterization No Diabetes Yes: Diet controlled, no medications Hx Drug Resistant Organism No Presence of External or Internal Medical No Devices Have you traveled outside the [place] in the last 30 days? Marital Status / Lives With family Prior Living Arrangements Apartment/Condo Support System Sibling(s) Patient Discharge Plan Description Return Home Do You Have Any Spiritual Beliefs That No May Affect Your HC Choices? Do You Have Any Cultural Practices That No May Affect Your HC Choices? Health Care Proxy/Next of Kin Jenniffer (Daughter) Emergency Contact Name Nestor Rabago (Brother) Emergency Contact Advance Directives? Unknown, information provided w/prior admit 06/04/18 Advance Directives on File No Power of Drop Press Hand No
--- NOTE | 2019-01-02 12:24 | PT.IPTN ---
Current Diagnoses Morbid (severe) obesity due to excess calories (12/31/18) Obstructive sleep apnea (adult) (pediatric) (12/31/18) Paroxysmal atrial fibrillation (12/31/18) Chronic obstructive pulmonary disease with (acute) exacerbation (12/31/18) Acute respiratory failure with hypoxia (12/31/18) Unilateral primary osteoarthritis, left knee (12/31/18) Presence of right artificial knee joint (12/31/18) Surgery Performed Operation Date: 12/31/18 11:30 Actual Procedures p Unicompartment Knee Arthroplasty-Medial(Left) - Marin Rodriguez MD Physical Therapy Treatment Note M2 PT-IP Current Condition Start: 12/31/18 16:55 Freq: NEEDED Status: Active Protocol: Document 01/01/19 08:53 EA (Rec: 01/01/19 09:03 EA [id number]) Physical Therapy Current Condition Current Condition Evaluation Date 01/01/19 Treatment Diagnosis s/p left medial compartment arthroplasty 12/31/18 Weight Bearing Status Weight Bearing Status Weight Bear as Tolerated M3 PT-IP Subjective Start: 12/31/18 16:55 Freq: NEEDED Status: Active Protocol: Document 01/02/19 11:00 HH (Rec: 01/02/19 12:24 HH [email or web address]) Subjective Physical Therapy Visit Type Type Treatment Note Visit Start Time 11:00 Visit Stop Time 11:30 Total Visit Minutes 30 Notes Per RN, pt has been getting OOB to chair/ bathroom multiple times with 1pa. Number of AX SURVEY WORKER Visits 0 Physical Therapy Visit Comments Patient Comments Im doing much better today but i dont think i can go home yet because of the 32steps Therapy Pain Assessment Pain When Pain Assessed During Mobility Pain Present Pain Present Pain Reported Location Left Knee Intensity 3 Scale Used Numeric (1 - 10) Description Acute M4 PT-IP Mobility and Gait Start: 12/31/18 16:55 Freq: NEEDED Status: Active Protocol: Document 01/02/19 11:00 HH (Rec: 01/02/19 12:24 HH [id number]) PT-Bed Mobility Assessment Supine to Sit Supine to Sit Standby Assistance Sit to Supine Sit to Supine Standby Assistance Scooting Scooting to Edge of Bed Standby Assistance PT-Transfer Assessment Sit to and From Stand Sit to and from Stand Standby Assistance Equipment Transfer Assistive Device Gait Belt Front Wheeled Walker Orthotic/Prosthetic Devices or Brace: No Transfers Transfer Destination Chair Transfer Technique Stand Step Pivot Transfer Ability Level of Assist Standby Assistance Use of Upper Extremities Comments Mobility Comments Pt SBA with all bed mobility and transfers. He is able to fully WB and less relied on UEs. Gait Assessment Gait Gait Assistance Required: Standby Assistance Distance (Feet) 200 Able to Maintain Weight Bearing Status Yes During Gait Assistive Devices Assistive Device Gait Belt Front Wheeled Walker Gait Deviations General Gait Pattern Antalgic Decreased Stride Length Step-to Gait Factors Limiting Gait Function Factors Limiting Gait Function Decreased Activity Tolerance Decreased Strength Pain Poor Balance Comments Gait Comments Gait training with pt followed by w/c today. Pt with step to gait for first 80 feet but then progressed to 1/2 step through with antalgic gait. Stair Climbing Assessment Evaluation Level of Assist On Stairs Contact Guard Assistance Devices Stair Climbing Assistive Devices Left Railing Right Railing Technique/Endurance Stair Climbing Direction Ascend and Descend Stair Climbing Technique Step to Step Number of Steps Climbed 3 Query Text: Stair Climbing Set # Repetitions (reps) 3 Comments Stair Climbing Comments educated pt to lead with RLE going up and with LLE going down M5 PT-IP Objective Assessments Start: 12/31/18 16:55 Freq: NEEDED Status: Active Protocol: Document 01/01/19 08:53 EA (Rec: 01/01/19 09:03 EA [id number]) Orientation Orientation/Cognition Level of Alertness Alert Orientation Name Age Language Function Ability No Deficits Noted Memory Description No Deficits Noted Gross Range of Motion Upper Extremity ROM Assessment Within Functional Limits Lower Extremity ROM Assessment Left Impaired Impairments at least 0-90 deg Strength Upper Extremity Strength Assessment Within Functional Limits Lower Extremity Strength Assessment Left Impaired Knee at least 3/5 Coordination Assessment Gross Coordination Gross Coordination WNL Sensation Assessment Sensation Gross Sensation WNL Light Touch Intact Proprioception (Position) Intact Sensation Description Paresthesia M6 PT-IP Treatment Start: 12/31/18 16:55 Freq: NEEDED Status: Active Protocol: Document 01/01/19 14:25 SA (Rec: 01/01/19 14:40 SA [id number]) Physical Therapy Treatment Exercises Exercises Ankle Pumps Heel Slides Short Arc Quads Seated Knee Flexion/Extension Education Education Provided Precautions Weight Bearing Status Post-Op Packet Safety Other Treatments Other Treatment Performed Standing postural correction and PLB technique. 02 sats dropped to 87% on RA, remained above 93% on 2L with mobility . M7 PT-IP Assessment and Plan Start: 12/31/18 16:55 Freq: NEEDED Status: Active Protocol: Document 01/02/19 11:00 (Rec: 01/02/19 12:24 [id number]) PT Summary Assessment and Plan Potential Rehabilitation Potential Good Status of Condition at Evaluation Stable Summary Impairments Pain ROM Strength Balance Bed Mobility Gait Activity Tolerance Assessment Summary Pt showed significant improved mobility today who amb 200 ft with FWW SBA (step to <>step through gait) and able to climb 3steps x 3 with B railings CGA. Pt is still not safe to d/c home due to 32 steps at home. Goals Bed Mobility Goal Independent Transfer Goal Independent Gait Goal Independent Gait Distance 300 Other Goals climb steps x 32 indepdnently Days to Meet Goals 3 Frequency of Treatment Frequency Of Treatment Twice a Day Treatment Plan Physical Therapy Treatment Plan Bed Mobility Training Transfer Training Gait Training Therapeutic Exercise Balance Retraining Post Op Education Recommendations To Nursing Amount of Assist Needed 1 Person Assist Discharge Recommendations PT Discharge Recommendations SNF Rehab
--- NOTE | 2019-01-02 13:47 | PM.PN.1 ---
Subjective Date Patient Seen: 01/02/19 Interval history: 78-year-old male I was asked to evaluate for persistent hypoxia during ambulation. Patient did received a nebulizer treatment yesterday. He has a room air oxygen saturation of 92%. He was able to ambulate today without significant hypoxia. Patient is now on his usual inhalers. He was started on prednisone yesterday. Exam Vital Signs (past 8 hours): - 01/02/19 09:00 01/02/19 09:10 01/02/19 12:00 Temperature 98.2 F 97.5 F L Pulse Rate 86 83 75 Respiratory Rate 18 16 18 Blood Pressure 134/70 111/43 L Pulse Oximetry 90 L 93 91 Fraction of Inspired Oxygen 21 Oxygen Delivery Method Room Air Oxygen Flow Rate 0 Narrative Exam Narrative: Pleasant gentleman resting comfortably Lungs: Decreased breath sounds with occasional end-expiratory wheezing Cardiac exam: Irregular, normal S1-S2 Abdomen: Soft and nontender Extremities: Left knee with an Salomon bandage and dressing in place Objective Labs Result Diagrams: 01/01/19 17:28 01/01/19 17:28 Labs: Laboratory Results - last 24 hr 01/01/19 01/01/19 01/01/19 17:28 17:28 17:28 WBC 16.7 H RBC 5.37 Hgb 15.0 Hct 45.1 MCV 84.1 MCH 28.0 MCHC 33.3 RDW 14.4 Plt Count 200 Neut % (Auto) 56.7 Lymph % (Auto) 32.1 [place] % (Auto) 9.9 Eos % (Auto) 0.5 L Baso % (Auto) 0.8 Neut # (Auto) 9400 H Lymph # (Auto) 5400 H [place] # (Auto) 1700 H Eos # (Auto) 100 Baso # (Auto) 100 Sodium 140 Potassium 4.4 Chloride 99 Carbon Dioxide 35 H BUN 25 H Creatinine 1.00 Estimated GFR > 60.0 BUN/Creatinine Ratio 25.0 H Glucose 97 Calcium 8.9 B-Natriuretic Peptide < 100 Assessment & Plan (1) COPD with exacerbation: Problem details: The patient is status post left knee arthroscopic. He was hypoxic at rest and hypoxic with activity. The patient has known COPD. He is receiving Xopenex and Atrovent inhalers. Discussed plan of care with the patient. It will switch him to albuterol Atrovent nebulizers. Start him on a low pulse dose of prednisone for 5 days which he is agreeable to. Will add inhaled steroids as well. Improved Current visit: Yes Status: Acute (2) Acute respiratory failure with hypoxia: Problem details: Acute hypoxic respiratory failure, likely multifactorial. Will assess for home oxygen. Continue nebulizers oxygen and steroids Significantly improved no need for home O2 at this time Current visit: Yes Status: Acute (3) History of arthroplasty of right knee: Problem details: Per Ortho Current visit: Yes Status: Acute (4) Paroxysmal atrial fibrillation: Problem details: History of paroxysmal atrial fibrillation, patient is in sinus rhythm, not on anticoagulation No further intervention needed Current visit: Yes Status: Acute (5) Morbid obesity: Current visit: Yes Status: Acute (6) Obstructive sleep apnea: Problem details: Patient will continue BiPAP at night. He may require nighttime oxygen as well. Will assess here in the hospital. Current visit: Yes Status: Acute Assessment & Plan narrative: Recommend a 5 day course of prednisone. Patient should discontinue it and 3 days. Quality VTE Deep Vein Thrombosis/Pulmonary Embolism Present on Admission: No
--- NOTE | 2019-01-02 14:09 | PT.IPTN ---
Current Diagnoses Morbid (severe) obesity due to excess calories (12/31/18) Obstructive sleep apnea (adult) (pediatric) (12/31/18) Paroxysmal atrial fibrillation (12/31/18) Chronic obstructive pulmonary disease with (acute) exacerbation (12/31/18) Acute respiratory failure with hypoxia (12/31/18) Unilateral primary osteoarthritis, left knee (12/31/18) Presence of right artificial knee joint (12/31/18) Surgery Performed Operation Date: 12/31/18 11:30 Actual Procedures p Unicompartment Knee Arthroplasty-Medial(Left) - Marin Rodriguez MD Physical Therapy Treatment Note M2 PT-IP Current Condition Start: 12/31/18 16:55 Freq: NEEDED Status: Active Protocol: Document 01/01/19 08:53 EA (Rec: 01/01/19 09:03 EA [id number]) Physical Therapy Current Condition Current Condition Evaluation Date 01/01/19 Treatment Diagnosis s/p left medial compartment arthroplasty 12/31/18 Weight Bearing Status Weight Bearing Status Weight Bear as Tolerated M3 PT-IP Subjective Start: 12/31/18 16:55 Freq: NEEDED Status: Active Protocol: Document 01/02/19 14:09 AB (Rec: 01/02/19 15:43 AB [id number]) Subjective Physical Therapy Visit Type Type Treatment Note Visit Start Time 14:09 Visit Stop Time 14:21 Total Visit Minutes 12 Number of REAL ESTATE OFFICER Visits 0 Physical Therapy Visit Comments Patient Comments pt agreeable to do PT Therapy Pain Assessment Pain When Pain Assessed At Rest Pain Present Pain Present Pain Reported Location Left Knee Intensity 3 Scale Used Numeric (1 - 10) Pain Management Techniques Re-positioning Timing of Activity with Medications M4 PT-IP Mobility and Gait Start: 12/31/18 16:55 Freq: NEEDED Status: Active Protocol: Document 01/02/19 14:09 AB (Rec: 01/02/19 15:43 AB [id number]) PT-Transfer Assessment Sit to and From Stand Sit to and from Stand Contact Guard Assistance Equipment Transfer Assistive Device Gait Belt Front Wheeled Walker Gait Assessment Gait Gait Assistance Required: Minimum Assistance Distance (Feet) 100 Able to Maintain Weight Bearing Status Yes During Gait Assistive Devices Assistive Device Gait Belt Front Wheeled Walker Orthotic/Prosthetic Devices or Brace: No Gait Deviations General Gait Pattern Antalgic Factors Limiting Gait Function Factors Limiting Gait Function Decreased Activity Tolerance Decreased Strength Limited Range of Motion Pain Poor Balance Comments Gait Comments pt can be impulsive. pt tends to hyperextend L knee during ambulation. M5 PT-IP Objective Assessments Start: 12/31/18 16:55 Freq: NEEDED Status: Active Protocol: Document 01/01/19 08:53 EA (Rec: 01/01/19 09:03 EA [id number]) Orientation Orientation/Cognition Level of Alertness Alert Orientation Name Age Language Function Ability No Deficits Noted Memory Description No Deficits Noted Gross Range of Motion Upper Extremity ROM Assessment Within Functional Limits Lower Extremity ROM Assessment Left Impaired Impairments at least 0-90 deg Strength Upper Extremity Strength Assessment Within Functional Limits Lower Extremity Strength Assessment Left Impaired Knee at least 3/5 Coordination Assessment Gross Coordination Gross Coordination WNL Sensation Assessment Sensation Gross Sensation WNL Light Touch Intact Proprioception (Position) Intact Sensation Description Paresthesia M6 PT-IP Treatment Start: 12/31/18 16:55 Freq: NEEDED Status: Active Protocol: Document 01/02/19 14:09 AB (Rec: 01/02/19 15:43 AB [id number]) Physical Therapy Treatment Education Education Provided Precautions Safety M7 PT-IP Assessment and Plan Start: 12/31/18 16:55 Freq: NEEDED Status: Active Protocol: Document 01/02/19 14:09 AB (Rec: 01/02/19 15:43 AB [id number]) PT Summary Assessment and Plan Potential Rehabilitation Potential Good Summary Impairments Pain ROM Strength Balance Coordination Sensation Tone Cognition Bed Mobility Transfers Gait Activity Tolerance Progress Towards Goals Progressing Toward Goals Assessment Summary pt continues to require one person assist with mobility and with decrease safety awareness. pt has 32 steps to get into the house and stated that his brother assists with some house chores but will not be able to actually assist him due to his brother's own medical issues. pt will benefit from SNF rehab to improve strength and mobility prior to d/c home. Goals Bed Mobility Goal Independent Transfer Goal Independent Gait Goal Independent Gait Distance 300 Other Goals up/down 32 steps B rail SBA Days to Meet Goals 5 Frequency of Treatment Frequency Of Treatment Twice a Day Treatment Plan Physical Therapy Treatment Plan Bed Mobility Training Transfer Training Gait Training Therapeutic Exercise Balance Retraining Post Op Education Recommendations To Nursing Amount of Assist Needed 1 Person Assist Discharge Recommendations PT Discharge Recommendations SNF Rehab
--- NOTE | 2019-01-02 15:24 | OT.IP.EVAL ---
Current Diagnoses Morbid (severe) obesity due to excess calories (12/31/18) Obstructive sleep apnea (adult) (pediatric) (12/31/18) Paroxysmal atrial fibrillation (12/31/18) Chronic obstructive pulmonary disease with (acute) exacerbation (12/31/18) Acute respiratory failure with hypoxia (12/31/18) Unilateral primary osteoarthritis, left knee (12/31/18) Presence of right artificial knee joint (12/31/18) Surgery Performed Operation Date: 12/31/18 11:30 Actual Procedures p Unicompartment Knee Arthroplasty-Medial(Left) - Marin Rodriguez MD Past Medical History (Last Reviewed 12/31/18 @ 16:45 by Prem Chaidez, PT, [place]) Antisocial behavior (Acute) Anxiety (Acute) Arthritis (Acute) BCC (basal cell carcinoma of skin) (Acute) COPD (chronic obstructive pulmonary disease) (Acute) Cellulitis (Acute) Degenerative arthritis of right knee (Acute) Depression (Acute) Diabetes (Acute) Diverticulosis (Acute) Enlarged prostate (Acute) GERD (gastroesophageal reflux disease) (Acute) History of ETOH abuse (Acute) History of stroke (Acute ~1959) Hypertension (Acute) Numbness (Acute) Paroxysmal A-fib (Acute) Pneumonia (Acute) Skin cancer (Acute) Sleep apnea treated with nocturnal BiPAP (Acute) Surgical History (Last Updated 07/24/18 @ 08:01 by Mai Ahmadi RN) Hx of hernia repair (Acute) Hx of tonsillectomy (Acute) S/P right unicompartmental knee replacement (Acute) Status post cataract extraction of both eyes with insertion of intraocular lens (Acute) Occupational Therapy Inpatient Evaluation/Re-Eval M1 PT/OT-IP Prior Functional Status Start: 01/02/19 14:55 Freq: NEEDED Status: Active Protocol: Document 01/02/19 14:57 [facility] (Rec: 01/02/19 15:23 [facility] [id number]) Medical Review Prior Functional Status Medical History Reviewed Yes Diet/Fluid Consistency Regular Communication Normal Mobility and Gait Ambulates > 2 blocks with the use of FWW (outside amb) Uses STC with indoor amb. Single fall in six months while getting in to the hospital (IH 12/31/18). Activities of Daily Living and IADL's Indep. Prior Functional Level (Other details) Lives in a hotel with his brother which he thinks his brother would not be able to give full care support. Social History Household Members family Living Arrangements Apartment/Condo Number of Floors (Floors) Two Floors Number of Stairs To Enter/Railing? 32 steps with rails on each sides Home Environment Standard Height Toilet Employment Status Retired M2 OT-IP Current Condition Start: 01/02/19 14:55 Freq: Status: Active Protocol: Document 01/02/19 14:57 [facility] (Rec: 01/02/19 15:23 [facility] [id number]) Occupational Therapy Current Condition Current Condition Evaluation Date 01/02/19 Treatment Diagnosis s/p Left Medial Compartment Arthroplasty 12/31/18 Weight Bearing Status Weight Bearing Status Weight Bear as Tolerated M3 OT- IP Subjective and Pain Start: 01/02/19 14:55 Freq: Status: Active Protocol: Document 01/02/19 14:57 [facility] (Rec: 01/02/19 15:23 [facility] [id number]) OT- Subjective Occupational Therapy Visit Type Type Initial Evaluation Visit Start Time 14:35 Visit Stop Time 14:55 Total Visit Minutes 20 Occupational Therapy Visit Comments Patient Comments Pt agrreeable to do OT eval. Patient/Caregiver Goals Pt wanting to go to SNF prior going home. OT Pain Assessment Pain When Pain Assessed During Mobility Pain Present Pain Present Pain Reported Location Left Knee Intensity 6 M4 OT- IP ADL's Start: 01/02/19 14:55 Freq: Status: Active Protocol: Document 01/02/19 14:57 [facility] (Rec: 01/02/19 15:23 [facility] [id number]) OT ADL-Grooming General Evaluation Grooming Ability Standby Assistance Areas Needing Assistance Retrieving/Set-up of Grooming Items Comments OT Grooming Comments Pt able to use FWW to get to the sink and to do grooming needs, just needing vc to keep FWW in front of him at all times. OT ADL-Dressing General Eval Lower Body Dressing Ability Maximum Assistance Areas Needing Assistance Socks Comments OT Dressing Comments Pt needing assist to lois doff left sock at this time due to knee pain and unable to bend over or cross his leg over to do so at this time. OT ADL-Bathing Comments OT Bathing Comments Pt wanting to shower tomorrow. M5 OT- IP IADL's Start: 01/02/19 14:55 Freq: Status: Active Protocol: Document 01/02/19 14:57 [facility] (Rec: 01/02/19 15:23 [facility] [id number]) OT-Instrumental Activities of Daily Living Home Safety Awareness Awareness of Need for Assistance at Home Good Awareness Ability to Problem Solve Emergency Able to Problem Solve Situations Medication Management Medication Management No Deficits Identified Money Management Money Management No Deficits Identified Panel Cutter Panel Cutter Comments Pt's brother to assist. M6 OT- IP Functional Cognition Start: 01/02/19 14:55 Freq: Status: Active Protocol: Document 01/02/19 14:57 [facility] (Rec: 01/02/19 15:23 [facility] [id number]) Cognitive Factors Limiting Selfcare Function Cognitive Ability Level of Alertness Alert Patient Orientation Name Age Birthday Month Date Year Day of Week Place Situation Attention Span Ability Capable of Focused Attention Capable of Sustained Attention Ability to Follow Commands Able to Follow Multi-Step Commands Memory Description No Deficits Noted Safety Awareness Underestimates Need for Assistance Cognitive Comments Cognitive Assessment Comments Pt vc to keep FWW close and to slow down. OT- Vision and Hearing OT- Hearing Assessment OT- Hearing Assessment WFL M7 OT- IP Mobility and Balance Start: 01/02/19 14:55 Freq: Status: Active Protocol: Document 01/02/19 14:57 [facility] (Rec: 01/02/19 15:23 [facility] [id number]) OT-Transfer Assessment Sit to and From Stand Sit to and from Stand Standby Assistance Transfers Transfer Ability Standby Assistance Technique Transfer Destination Chair Devices Transfer Assistive Devices Gait Belt Front Wheeled Walker Comments Mobility Comments SBA with FWW and heavy use of arms on FWW. OT- Balance Assessment Sitting Balance and Reactions Static Sitting Balance Ability Normal Dynamic Sitting Balance Ability Normal Standing Balance and Reactions Static Standing Balance Ability Good M8 OT- IP Objective Assessments Start: 01/02/19 14:55 Freq: Status: Active Protocol: Document 01/02/19 14:57 [facility] (Rec: 01/02/19 15:23 [facility] [email or web address]) OT Gross Range of Motion Upper Extremity Range of Motion Assessment Within Functional Limits OT Strength Comments Strength Comments LUE 4+/5, RUE 4/5 M9 OT- IP Assessment and Plan Start: 01/02/19 14:55 Freq: Status: Active Protocol: Document 01/02/19 14:57 [facility] (Rec: 01/02/19 15:23 [facility] [id number]) OT Summary Assessment and Plan Potential Rehabilitation Potential Excellent Analytic Complexity at Evaluation Low Summary OT Impairments Pain Balance Functional Mobility Dressing Toileting Bathing Toilet Transfers Shower Transfers Progress Towards Goals Progressing Toward Goals Slow Progress due to Activity Tolerance Assessment Summary Pt low complexity and main barrier is 32+ steps and now needing assist for ADL's at this time. Pt would benefit from short skilled rehab prior to going home. Pt is very motivated and has great potential for rehab. Goals Grooming Goal Independent Dressing Goal Standby Assistance Toileting Goal Standby Assistance Bathing Goal Standby Assistance Toilet Transfer Goal Standard Toilet Shower Transfer Goal Contact Guard Assistance Days to Meet Goals 3 Frequency of Treatment Frequency Of Treatment Once a Day Treatment Plan OT Treatment Plan ADL Training Functional Mobility Patient/Family Education Discharge Planning Other Treatment Recommendations and Next Shower, practice with [facility]. Treatment Focus Discharge Recommendations OT Discharge Recommendations SNF Rehab
[2019-01-02] MEDS: MIRTAZAPINE 15 MG TABLET 30 MG PO (20:27)
[2019-01-03] VITALS (10 sets, daily range): BP systolic 89–148; BP diastolic 47–85; PULSE 68–84; RESP 16–20; TEMP 36.5–36.8; O2SAT 92–96
[2019-01-03] MEDS: ACETAMINOPHEN 325 MG TABLET 975 MG PO ×3 (08:01→21:02)
[2019-01-03] MEDS: LOSARTAN 25 MG TABLET PO (08:02)
[2019-01-03] MEDS: POTASSIUM CHLORIDE 20 MEQ TAB PO (08:02)
[2019-01-03] MEDS: predniSONE 20 MG TABLET 40 MG PO (08:02)
[2019-01-03] MEDS: TORSEMIDE 10 MG TABLET 20 MG PO (08:02)
[2019-01-03] MEDS: MELOXICAM 7.5 MG TABLET 15 MG PO (08:02)
[2019-01-03] MEDS: ASPIRIN EC 81 MG TABLET PO ×2 (08:02→21:02)
[2019-01-03] MEDS: MAGNESIUM HYDROXIDE 30 ML UDC PO ×2 (08:03→18:13)
[2019-01-03] MEDS: DOCUSATE 100 MG CAPSULE PO (08:03)
[2019-01-03] MEDS: SODIUM CHLORIDE 0.9% FLUSH 10 ML IV (08:03)
[2019-01-03] MEDS: OXYCODONE IR 5 MG TABLET PO ×2 (08:03→21:01)
[2019-01-03] MEDS: ALBUTEROL/IPRATROPIUM 3 ML AMPUL INH ×3 (08:04→18:50)
[2019-01-03] MEDS: BUDESONIDE 60 PUFF/DEVICE INHALER INH (08:04)
--- NOTE | 2019-01-03 08:41 | PM.DS.1 ---
History of Present Illness Date Patient Seen: 01/03/19 Time Patient Seen: 08:41 Chief complaint: [id number] LEFT KNEE ARTHROPLASTY Narrative: Patient's pain is [id number]. Denies fever chills. No nausea vomiting. Denies shortness of breath or chest pain. patient has 30 to stairs to get to his apartment with no elevator. He did have an acute exacerbation of COPD well in the hospital after surgery. Hospitalist was consulted. Patient has improved and is stable at this time. Discharge Providers Date of admission: 12/31/18 10:01 Discharge Date: 01/03/19 Primary care physician: Nikolas Guy MD Consults: 12/31/18 15:35 Consult to Discharge Planning Routine Comment: Consult to Physical Therapy Evaluate & Treat Comment: Physician Instructions: postop TKA protocol Consult to Respiratory Therapy Evaluate & Treat Comment: Physician Instructions: Evaluate and treat 01/01/19 10:24 Consult to Physician Routine Comment: Consulting Provider: Cate Henriquez Reason for consultation: Desaturation postop left knee surgery. history COPD, sleep apnea Has provider been notified: Yes 01/01/19 10:25 Consult to Occupational Therapy Evaluate & Treat Comment: Postop left knee medial unicompartment arthroplast Physician Instructions: Evaluate and treat Discharge provider: Joe Wallace PA-C Summary Discharge Diagnosis: Status post left Uni knee arthroplasty December 31, 2018 Hospital Course: Indications: The patient presents today for medial compartment arthroplasty after failure of conservative treatment. The nature of the procedure including the risks and benefits, alternatives, postoperative course and expected outcome were discussed and all questions answered. Consent was obtained. Operative site confirmed and marked. Surgeon: Marin Rodriguez Radio Sales Account Executive: Joe Wallace Anesthesia Type: General and Local Operative Notes Findings: Severe medial compartment osteoarthritis. Closure Type: primary Specimen(s): none sent Prosthetic devices, grafts, tissues, transplants, or devices: ZUK: E femoral component, 4 tibial component and 8 mm polyethylene spacer. Applied: implant(s) Estimated Blood Loss (mL): 10 Blood products transfused: none Tourniquet time (min): 45 Patient was working with Physical therapy on postop day 1 was found to be markedly hypoxic. Hospitalist was consulted. Patient switched to a. Overall nebulizer as well as prednisone for 5 days with an additional inhaled steroid. Patient has improved. Currently stable. Status at Discharge Cognitive/behavioral status at discharge: at baseline, oriented Functional status at discharge: uses cane/walker Overall status at discharge: patient is progressing back to baseline Time Spent with Patient Less than 30 minutes Exam Vital Signs (past 8 hours): - 01/03/19 03:47 01/03/19 07:25 Temperature 97.7 F 98.1 F Pulse Rate 68 72 Respiratory Rate 16 20 Blood Pressure 134/84 140/74 Pulse Oximetry 96 96 Fraction of Inspired Oxygen 21 Oxygen Delivery Method Room Air Oxygen Flow Rate 0 Narrative Exam Narrative: Pleasant 78-year-old male aiding breakfast in bedside chair. Patient in no apparent distress. left knee dressing is clean, dry and intact. the upper edge of the Aquacel dressing is rolled up and will be need to be replaced prior to discharge. Minimal swelling about the left knee. No erythema. Neurovascular status is intact distal left lower extremity. Calf is soft and nontender negative Homans. Objective Labs Result Diagrams: 01/01/19 17:28 01/01/19 17:28 Discharge Plan Discharge Plan Patient Disposition: [facility] Other facility: [facility] Under care of provider: Dr. Rodriguez Transportation: Cab[facility] Discharge comment: DC in stable condition status post left knee medial compartment arthroplasty. COPD with exacerbation I certify the postop hospital group home care is medically necessary on a continuing basis for any conditions for which he/ she received care during this hospitalization.: Yes The receiving facility has agreed to accept transfer and provide medical treatment.: Yes Discharge Med Rec/Prescriptions Prescriptions: New acetaminophen 325 mg Tablet 975 mg PO TID Qty: 90 RF: 0 prednisone 20 mg Tablet 40 mg PO DAILY Qty: 6 RF: 0 aspirin 81 mg Tablet,Delayed Release (Dr/Ec) 81 mg PO BID Qty: 60 RF: 0 meloxicam [Mobic] 7.5 mg Tablet 15 mg PO 0800 Qty: 30 RF: 0 docusate sodium 100 mg Capsule 100 mg PO BID PRN (Reason: Constipation) Qty: 30 RF: 0 oxycodone 5 mg Tablet 5 mg PO Q3HR PRN (Reason: Pain, Moderate (4-6)) Qty: 40 RF: 0 Pulmicort Flexhaler 180 mcg/actuation Aerosol Powdr Breath Activated 2 puff INH BID Qty: 1 RF: 0 Continued losartan 50 mg Tablet 25 mg PO DAILY RF: 0 torsemide 20 mg Tablet 20 mg PO DAILY RF: 0 mirtazapine 30 mg Tablet 30 mg PO DAILY PRN (Reason: Sleep) RF: 0 Atrovent HFA 17 mcg/actuation Hfa Aerosol Inhaler 1 puff INHALATION BID RF: 0 potassium chloride 20 mEq Tablet Extended Release 20 meq PO DAILY RF: 0 Discontinued levalbuterol tartrate [Xopenex HFA] 45 mcg/actuation Hfa Aerosol Inhaler 2 puff INHALATION Q4-6H PRN (Reason: COPD) RF: 0 aspirin 81 mg Tablet,Delayed Release (Dr/Ec) 81 mg PO BID Qty: 30 RF: 0 Follow up/Referrals: Marin Rodriguez MD [Physician] - Discharge Health Status Brief summary of current health status: stable status post left medial compartment arthroplasty, COPD with exacerbation Multidrug resistant organism: No MDRO MDRO Verified by culture: No Provider Discharge Instructions Diet: Regular Activity: Weightbearing as tolerated. Use walker as needed. Cold/Heat Therapy: Ice the knee as needed. Other treatments: Start physical therapy within 1 week. Skin/Wound/Dressing Care Report to your healthcare provider any signs of infection, such as:: chills, fever, increased pain, unusual drainage and unusual redness Dressing: May leave dressing on for 7-10 days or until follow-up. May shower over dressing. [facility] Rehab type: Physical therapy and Occupational therapy Restrictions to mobility: WBAT Visit Report/Discharge Packet Instructions: DI for Knee Replacement Stand Alone Forms: Surgery Discharge Discharge Data Primary Care Provider: Nikolas Guy Attending Provider: Marin Rodriguez Admit Date/Time: 12/31/18 10:01 Quality VTE Deep Vein Thrombosis/Pulmonary Embolism Present on Admission: No
--- NOTE | 2019-01-03 08:45 | P.DS_ITS ---
History of Present Illness Date Patient Seen: 01/03/19 Time Patient Seen: 08:41 Chief complaint: 18991 LEFT KNEE ARTHROPLASTY Narrative: Patient's pain is [id number]. Denies fever chills. No nausea vomiting. Denies shortness of breath or chest pain. patient has 30 to stairs to get to his apartment with no elevator. He did have an acute exacerbation of COPD well in the hospital after surgery. Hospitalist was consulted. Patient has improved and is stable at this time. Discharge Providers Date of admission: 12/31/18 10:01 Discharge Date: 01/03/19 Primary care physician: Nikolas Guy MD Consults: 12/31/18 15:35 Consult to Discharge Planning Routine Comment: Consult to Physical Therapy Evaluate & Treat Comment: Physician Instructions: postop TKA protocol Consult to Respiratory Therapy Evaluate & Treat Comment: Physician Instructions: Evaluate and treat 01/01/19 10:24 Consult to Physician Routine Comment: Consulting Provider: Cate Henriquez Reason for consultation: Desaturation postop left knee surgery. history COPD, sleep apnea Has provider been notified: Yes 01/01/19 10:25 Consult to Occupational Therapy Evaluate & Treat Comment: Postop left knee medial unicompartment arthroplast Physician Instructions: Evaluate and treat Discharge provider: Joe Wallace PA-C Summary Discharge Diagnosis: Status post left Uni knee arthroplasty December 31, 2018 Hospital Course: Indications: The patient presents today for medial compartment arthroplasty after failure of conservative treatment. The nature of the procedure including the risks and benefits, alternatives, postoperative course and expected outcome were discussed and all questions answered. Consent was obtained. Operative site confirmed and marked. Surgeon: Marin Rodriguez Diecast Machine Operator: Joe Wallace Anesthesia Type: General and Local Operative Notes Findings: Severe medial compartment osteoarthritis. Closure Type: primary Specimen(s): none sent Prosthetic devices, grafts, tissues, transplants, or devices: ZUK: E femoral component, 4 tibial component and 8 mm polyethylene spacer. Applied: implant(s) Estimated Blood Loss (mL): 10 Blood products transfused: none Tourniquet time (min): 45 Patient was working with Physical therapy on postop day 1 was found to be markedly hypoxic. Hospitalist was consulted. Patient switched to a. Overall nebulizer as well as prednisone for 5 days with an additional inhaled steroid. Patient has improved. Currently stable. Status at Discharge Cognitive/behavioral status at discharge: at baseline, oriented Functional status at discharge: uses cane/walker Overall status at discharge: patient is progressing back to baseline Time Spent with Patient Less than 30 minutes Exam Vital Signs (past 8 hours): - 01/03/19 03:47 01/03/19 07:25 Temperature 97.7 F 98.1 F Pulse Rate 68 72 Respiratory Rate 16 20 Blood Pressure 134/84 140/74 Pulse Oximetry 96 96 Fraction of Inspired Oxygen 21 Oxygen Delivery Method Room Air Oxygen Flow Rate 0 Narrative Exam Narrative: Pleasant 78-year-old male aiding breakfast in bedside chair. Patient in no apparent distress. left knee dressing is clean, dry and intact. the upper edge of the Aquacel dressing is rolled up and will be need to be replaced prior to discharge. Minimal swelling about the left knee. No erythema. Neurovascular status is intact distal left lower extremity. Calf is soft and nontender negative Homans. Objective Labs Result Diagrams: 01/01/19 17:28 01/01/19 17:28 Discharge Plan Discharge Plan Patient Disposition: [facility] Other facility: [facility] Under care of provider: Dr. Rodriguez Transportation: [facility] Discharge comment: DC in stable condition status post left knee medial compartment arthroplasty. COPD with exacerbation I certify the postop hospital retirement care is medically necessary on a continuing basis for any conditions for which he/ she received care during this hospitalization.: Yes The receiving facility has agreed to accept transfer and provide medical treatment.: Yes Discharge Med Rec/Prescriptions Prescriptions: New acetaminophen 325 mg Tablet 975 mg PO TID Qty: 90 RF: 0 prednisone 20 mg Tablet 40 mg PO DAILY Qty: 6 RF: 0 aspirin 81 mg Tablet,Delayed Release (Dr/Ec) 81 mg PO BID Qty: 60 RF: 0 meloxicam [Mobic] 7.5 mg Tablet 15 mg PO 0800 Qty: 30 RF: 0 docusate sodium 100 mg Capsule 100 mg PO BID PRN (Reason: Constipation) Qty: 30 RF: 0 oxycodone 5 mg Tablet 5 mg PO Q3HR PRN (Reason: Pain, Moderate (4-6)) Qty: 40 RF: 0 Pulmicort Flexhaler 180 mcg/actuation Aerosol Powdr Breath Activated 2 puff INH BID Qty: 1 RF: 0 Continued losartan 50 mg Tablet 25 mg PO DAILY RF: 0 torsemide 20 mg Tablet 20 mg PO DAILY RF: 0 mirtazapine 30 mg Tablet 30 mg PO DAILY PRN (Reason: Sleep) RF: 0 Atrovent HFA 17 mcg/actuation Hfa Aerosol Inhaler 1 puff INHALATION BID RF: 0 potassium chloride 20 mEq Tablet Extended Release 20 meq PO DAILY RF: 0 Discontinued levalbuterol tartrate [Xopenex HFA] 45 mcg/actuation Hfa Aerosol Inhaler 2 puff INHALATION Q4-6H PRN (Reason: COPD) RF: 0 aspirin 81 mg Tablet,Delayed Release (Dr/Ec) 81 mg PO BID Qty: 30 RF: 0 Follow up/Referrals: Marin Rodriguez MD [Physician] - Discharge Health Status Brief summary of current health status: stable status post left medial compartment arthroplasty, COPD with exacerbation Multidrug resistant organism: No MDRO MDRO Verified by culture: No Provider Discharge Instructions Diet: Regular Activity: Weightbearing as tolerated. Use walker as needed. Cold/Heat Therapy: Ice the knee as needed. Other treatments: Start physical therapy within 1 week. Skin/Wound/Dressing Care Report to your healthcare provider any signs of infection, such as:: chills, fever, increased pain, unusual drainage and unusual redness Dressing: May leave dressing on for 7-10 days or until follow-up. May shower over dressing. [facility] Rehab type: Physical therapy and Occupational therapy Restrictions to mobility: WBAT Visit Report/Discharge Packet Instructions: DI for Knee Replacement Stand Alone Forms: Surgery Discharge Discharge Data Primary Care Provider: Nikolas Guy Attending Provider: Marin Rodriguez Admit Date/Time: 12/31/18 10:01 Quality VTE Deep Vein Thrombosis/Pulmonary Embolism Present on Admission: No
--- NOTE | 2019-01-03 09:35 | PT.IPTN ---
Current Diagnoses Morbid (severe) obesity due to excess calories (12/31/18) Obstructive sleep apnea (adult) (pediatric) (12/31/18) Paroxysmal atrial fibrillation (12/31/18) Chronic obstructive pulmonary disease with (acute) exacerbation (12/31/18) Acute respiratory failure with hypoxia (12/31/18) Unilateral primary osteoarthritis, left knee (12/31/18) Presence of right artificial knee joint (12/31/18) Surgery Performed Operation Date: 12/31/18 11:30 Actual Procedures p Unicompartment Knee Arthroplasty-Medial(Left) - Marin Rodriguez MD Physical Therapy Treatment Note M2 PT-IP Current Condition Start: 12/31/18 16:55 Freq: NEEDED Status: Active Protocol: Document 01/01/19 08:53 EA (Rec: 01/01/19 09:03 EA [id number]) Physical Therapy Current Condition Current Condition Evaluation Date 01/01/19 Treatment Diagnosis s/p left medial compartment arthroplasty 12/31/18 Weight Bearing Status Weight Bearing Status Weight Bear as Tolerated M3 PT-IP Subjective Start: 12/31/18 16:55 Freq: NEEDED Status: Active Protocol: Document 01/03/19 09:35 AB (Rec: 01/03/19 11:07 AB [id number]) Subjective Physical Therapy Visit Type Type Treatment Note Visit Start Time 09:35 Visit Stop Time 09:50 Total Visit Minutes 15 Number of MECHANICAL METER TESTER Visits 0 Physical Therapy Visit Comments Patient Comments pt agreeable to do PT Therapy Pain Assessment Pain When Pain Assessed At Rest Pain Present Pain Present Pain Reported Location Left Knee Intensity 2 Scale Used Numeric (1 - 10) Pain Management Techniques Re-positioning Timing of Activity with Medications M4 PT-IP Mobility and Gait Start: 12/31/18 16:55 Freq: NEEDED Status: Active Protocol: Document 01/03/19 09:35 AB (Rec: 01/03/19 11:07 AB [id number]) PT-Transfer Assessment Sit to and From Stand Sit to and from Stand Standby Assistance Use of Upper Extremities Gait Assessment Gait Gait Assistance Required: Standby Assistance Contact Guard Assist Distance (Feet) 200 Able to Maintain Weight Bearing Status Yes During Gait Assistive Devices Assistive Device Gait Belt Front Wheeled Walker Gait Deviations General Gait Pattern Antalgic Factors Limiting Gait Function Factors Limiting Gait Function Decreased Activity Tolerance Decreased Strength Limited Range of Motion Pain Poor Balance M5 PT-IP Objective Assessments Start: 04/10/19 16:55 Freq: NEEDED Status: Active Protocol: Document 01/01/19 08:53 EA (Rec: 01/01/19 09:03 EA [id number]) Orientation Orientation/Cognition Level of Alertness Alert Orientation Name Age Language Function Ability No Deficits Noted Memory Description No Deficits Noted Gross Range of Motion Upper Extremity ROM Assessment Within Functional Limits Lower Extremity ROM Assessment Left Impaired Impairments at least 0-90 deg Strength Upper Extremity Strength Assessment Within Functional Limits Lower Extremity Strength Assessment Left Impaired Knee at least 3/5 Coordination Assessment Gross Coordination Gross Coordination WNL Sensation Assessment Sensation Gross Sensation WNL Light Touch Intact Proprioception (Position) Intact Sensation Description Paresthesia M6 PT-IP Treatment Start: 12/31/18 16:55 Freq: NEEDED Status: Active Protocol: Document 01/03/19 09:35 AB (Rec: 01/03/19 11:07 AB [id number]) Physical Therapy Treatment Education Education Provided Safety M7 PT-IP Assessment and Plan Start: 12/31/18 16:55 Freq: NEEDED Status: Active Protocol: Document 01/03/19 09:35 AB (Rec: 01/03/19 11:07 AB [id number]) PT Summary Assessment and Plan Potential Rehabilitation Potential Good Summary Impairments Pain ROM Strength Balance Coordination Sensation Bed Mobility Transfers Gait Activity Tolerance Progress Towards Goals Progressing Toward Goals Assessment Summary pt progressing well and seems more stable today with ambulation. pt's main concern is his 32-33 steps to get into his house. pt will be going to SNF prior to d/c home. Goals Bed Mobility Goal Independent Transfer Goal Independent Gait Goal Independent Gait Distance 300 Other Goals up/down 32 steps B rail SBA Days to Meet Goals 5 Frequency of Treatment Frequency Of Treatment Twice a Day Recommendations To Nursing Amount of Assist Needed 1 Person Assist Discharge Recommendations PT Discharge Recommendations SNF Rehab
--- NOTE | 2019-01-03 10:16 | CM.DPC ---
Addendum entered by Gladys Mabry R.N. 01/03/19 11:58: Confirmed with Zakia in admissions that they do not do transports. Confirmed tomorrow at 1400 that they will be able to accept patient. Original Note: Addendum entered by Gladys Mabry R.N. 01/03/19 11:35: Zakia from admissions called back, at [facility]. She stated, we can accept him, just not today. She initially had his name wrong, she was under the assumption that his last name was Rikcy. Asked her why they could not accept patient today, when it was confirmed, per notes from yesterday. She stated, it was never confirmed, and they do first come first serve basis, and they had no beds today. She confirmed that they could accept patient tomorrow at 1400. Updated patient, and his brother, who had come to pick him up. Apologized to patient, as well as brother, and patient stated, it's not your fault. He is aware that he will stay another night. Called Quintin Wallace in ortho, and gave him an update that discharge would happen tomorrow, but not today. He stated that Dr. Olivia Ghotra can do new orders for tomorrow. Scripts are already written. Left another message with Zakia in admissions at [facility], inquiring if they could provide transportation since brother came up here from [place]. Will await response. Original Note: Addendum entered by Gladys Mabry R.N. 01/03/19 11:14: Attempted to reach admissions, no answer, left another message for Zakia to call back. Have an alternate number of [phone]. Have not yet had any response. Original Note: DCP Cont: Patient has discharge orders. Attempted to reach admissions at [facility], left a message for Zakia, admissions nurse. Patient aware. He is planning on his brother picking him up at approximately 11:00. Richelle, floor nurse, attempted to reach facility to give report. She stated that the nurse knew nothing about the admit, had no information on him. Had already faxed signed med list, PASSR, and discharge summary. Did not go through, will refax. This nurse called [facility] number, for unable to get in touch with anyone in admissions. Stated, admissions nurse does not come in until 11:00. Asked to speak to pulp house supervisor, and she stated that her pulp house supervisor stated, there's nothing she can do until the admissions nurse comes in. Patient is updated, and will plan on having lunch here until there is an answer. Will follow up at 11:00, and refax notes. Gladys Mabry RN/Commercial Journeyman Electrician
--- NOTE | 2019-01-03 10:19 | PM.PN.1 ---
Subjective Date Patient Seen: 01/03/19 Interval history: The patient is a 78-year-old male who is here for a partial left knee arthroscopic surgery. He has a history of COPD obstructive sleep apnea and obesity hypoventilation I was asked to see the patient for hypoxia. He was given nebulizer treatment and started on prednisone. His oxygenation improved significantly. Patient is being discharged today to rehab for ongoing care. He denies any shortness of breath at this time. He is delighted that he will not need home oxygen. Exam Vital Signs (past 8 hours): - 01/03/19 03:47 01/03/19 07:25 01/03/19 09:08 Temperature 97.7 F 98.1 F Pulse Rate 68 72 84 Respiratory Rate 16 20 16 Blood Pressure 134/84 140/74 Pulse Oximetry 96 96 94 Fraction of Inspired Oxygen 21 Oxygen Delivery Method Room Air Oxygen Flow Rate 0 Narrative Exam Narrative: Pleasant obese male in no acute distress Lungs: Decreased breath sounds but clear to auscultation Cardiac exam: Regular rate and rhythm normal S1 and S2 with a 2/6 systolic ejection murmur Abdomen: Soft nontender nondistended Extremities: No edema, left knee with dressing in place. Chronic venous stasis changes of the right lower extremity. Objective Labs Result Diagrams: 01/01/19 17:28 01/01/19 17:28 Assessment & Plan (1) Obstructive sleep apnea: Problem details: Patient will continue BiPAP at night. He may require nighttime oxygen as well. Will assess here in the hospital. Current visit: Yes Status: Acute (2) Morbid obesity: Current visit: Yes Status: Acute (3) Paroxysmal atrial fibrillation: Problem details: History of paroxysmal atrial fibrillation, patient is in sinus rhythm, not on anticoagulation No further intervention needed Current visit: Yes Status: Acute (4) History of arthroplasty of right knee: Problem details: Per Ortho Current visit: Yes Status: Acute (5) Acute respiratory failure with hypoxia: Problem details: Acute hypoxic respiratory failure, likely multifactorial. Will assess for home oxygen. Continue nebulizers oxygen and steroids Significantly improved no need for home O2 at this time Current visit: Yes Status: Acute (6) COPD with exacerbation: Problem details: The patient is status post left knee arthroscopic. He was hypoxic at rest and hypoxic with activity. The patient has known COPD. He is receiving Xopenex and Atrovent inhalers. Discussed plan of care with the patient. It will switch him to albuterol Atrovent nebulizers. Start him on a low pulse dose of prednisone for 5 days which he is agreeable to. Will add inhaled steroids as well. Improved. Patient can take 2 additional days of prednisone and then be done. He has improved significantly so they can be rapidly tapered. Current visit: Yes Status: Acute Quality VTE Deep Vein Thrombosis/Pulmonary Embolism Present on Admission: No
--- NOTE | 2019-01-03 12:45 | OT.IP.TRT ---
Current Diagnoses Morbid (severe) obesity due to excess calories (12/31/18) Obstructive sleep apnea (adult) (pediatric) (12/31/18) Paroxysmal atrial fibrillation (12/31/18) Chronic obstructive pulmonary disease with (acute) exacerbation (12/31/18) Acute respiratory failure with hypoxia (12/31/18) Unilateral primary osteoarthritis, left knee (12/31/18) Presence of right artificial knee joint (12/31/18) Surgery Performed Operation Date: 12/31/18 11:30 Actual Procedures p Unicompartment Knee Arthroplasty-Medial(Left) - Marin Rodriguez MD Occupational Therapy Treatment Note M2 OT-IP Current Condition Start: 01/02/19 14:55 Freq: Status: Active Protocol: Document 01/02/19 14:57 [facility] (Rec: 01/02/19 15:23 [facility] [id number]) Occupational Therapy Current Condition Current Condition Evaluation Date 01/02/19 Treatment Diagnosis s/p Left Medial Compartment Arthroplasty 12/31/18 Weight Bearing Status Weight Bearing Status Weight Bear as Tolerated M3 OT- IP Subjective and Pain Start: 01/02/19 14:55 Freq: Status: Active Protocol: Document 01/03/19 09:00 [facility] (Rec: 01/03/19 12:45 [facility] [id number]) OT- Subjective Occupational Therapy Visit Type Type Patient Refusal Notes Pt not wanting to shower at this time as states to be leaving today for rehab.
--- NOTE | 2019-01-03 13:51 | PT.IPTN ---
Current Diagnoses Morbid (severe) obesity due to excess calories (12/31/18) Obstructive sleep apnea (adult) (pediatric) (12/31/18) Paroxysmal atrial fibrillation (12/31/18) Chronic obstructive pulmonary disease with (acute) exacerbation (12/31/18) Acute respiratory failure with hypoxia (12/31/18) Unilateral primary osteoarthritis, left knee (12/31/18) Presence of right artificial knee joint (12/31/18) Surgery Performed Operation Date: 12/31/18 11:30 Actual Procedures p Unicompartment Knee Arthroplasty-Medial(Left) - Marin Rodriguez MD Physical Therapy Treatment Note M2 PT-IP Current Condition Start: 12/31/18 16:55 Freq: NEEDED Status: Active Protocol: Document 01/01/19 08:53 EA (Rec: 01/01/19 09:03 EA [id number]) Physical Therapy Current Condition Current Condition Evaluation Date 01/01/19 Treatment Diagnosis s/p left medial compartment arthroplasty 12/31/18 Weight Bearing Status Weight Bearing Status Weight Bear as Tolerated M3 PT-IP Subjective Start: 12/31/18 16:55 Freq: NEEDED Status: Active Protocol: Document 01/03/19 13:51 AB (Rec: 01/03/19 15:13 AB [id number]) Subjective Physical Therapy Visit Type Type Treatment Note Visit Start Time 13:51 Visit Stop Time 14:08 Total Visit Minutes 17 Number of SUPERINTENDENT ELECTRIC POWER Visits 0 Physical Therapy Visit Comments Patient Comments pt agreeable to do PT Therapy Pain Assessment Pain When Pain Assessed At Rest Pain Present Pain Present Pain Reported Location Left Knee Scale Used stated not too bad; pain scale not stated M4 PT-IP Mobility and Gait Start: 12/31/18 16:55 Freq: NEEDED Status: Active Protocol: Document 01/03/19 13:51 AB (Rec: 01/03/19 15:13 AB [id number]) Gait Assessment Gait Gait Assistance Required: Standby Assistance Distance (Feet) 200 Able to Maintain Weight Bearing Status Yes During Gait Assistive Devices Assistive Device Gait Belt Front Wheeled Walker Orthotic/Prosthetic Devices or Brace: No Factors Limiting Gait Function Factors Limiting Gait Function Decreased Strength Limited Range of Motion Pain Poor Balance Comments Gait Comments pt also completed up/down step stool x 5 reps using FWW for support CGA M5 PT-IP Objective Assessments Start: 12/31/18 16:55 Freq: NEEDED Status: Active Protocol: Document 01/01/19 08:53 EA (Rec: 01/01/19 09:03 EA [id number]) Orientation Orientation/Cognition Level of Alertness Alert Orientation Name Age Language Function Ability No Deficits Noted Memory Description No Deficits Noted Gross Range of Motion Upper Extremity ROM Assessment Within Functional Limits Lower Extremity ROM Assessment Left Impaired Impairments at least 0-90 deg Strength Upper Extremity Strength Assessment Within Functional Limits Lower Extremity Strength Assessment Left Impaired Knee at least 3/5 Coordination Assessment Gross Coordination Gross Coordination WNL Sensation Assessment Sensation Gross Sensation WNL Light Touch Intact Proprioception (Position) Intact Sensation Description Paresthesia M6 PT-IP Treatment Start: 12/31/18 16:55 Freq: NEEDED Status: Active Protocol: Document 01/03/19 09:35 AB (Rec: 01/03/19 11:07 AB [id number]) Physical Therapy Treatment Education Education Provided Safety M7 PT-IP Assessment and Plan Start: 12/31/18 16:55 Freq: NEEDED Status: Active Protocol: Document 01/03/19 13:51 AB (Rec: 01/03/19 15:13 AB [id number]) PT Summary Assessment and Plan Potential Rehabilitation Potential Good Summary Impairments Pain ROM Strength Balance Coordination Sensation Bed Mobility Transfers Gait Activity Tolerance Progress Towards Goals Progressing Toward Goals Assessment Summary pt progressing with mobility requiring SBA with ambulation but required CGA with up/down steps using bilateral supports . pt has 32 steps at home. pt will benefit from SNF rehab to improve strength and mobility prior to d/c home. Goals Bed Mobility Goal Independent Transfer Goal Independent Gait Goal Independent Gait Distance 300 Other Goals up/down 32 steps B rail SBA Days to Meet Goals 5 Frequency of Treatment Frequency Of Treatment Twice a Day Treatment Plan Physical Therapy Treatment Plan Bed Mobility Training Transfer Training Gait Training Therapeutic Exercise Balance Retraining Post Op Education Recommendations To Nursing Amount of Assist Needed 1 Person Assist Discharge Recommendations PT Discharge Recommendations SNF Rehab
--- NOTE | 2019-01-03 18:13 | PC.NURSE ---
prune juice and m.o.m given per patient request
[2019-01-03] MEDS: MIRTAZAPINE 15 MG TABLET 30 MG PO (21:02)
[2019-01-04 00:50] VITALS: BP 135/80; PULSE 63; RESP 16; TEMP 36.3; O2SAT 93
[2019-01-04 05:01] VITALS: BP 168/86; PULSE 68; RESP 16; TEMP 36.3; O2SAT 94
[2019-01-04] MEDS: ALBUTEROL/IPRATROPIUM 3 ML AMPUL INH (08:54)
[2019-01-04] MEDS: BUDESONIDE 60 PUFF/DEVICE INHALER INH (08:54)
[2019-01-04 08:55] VITALS: PULSE 74; O2SAT 97
[2019-01-04 09:37] VITALS: BP 135/80; PULSE 86; RESP 16; TEMP 36.8; O2SAT 92
--- NOTE | 2019-01-04 09:40 | PT.IPTN ---
Current Diagnoses Morbid (severe) obesity due to excess calories (12/31/18) Obstructive sleep apnea (adult) (pediatric) (12/31/18) Paroxysmal atrial fibrillation (12/31/18) Chronic obstructive pulmonary disease with (acute) exacerbation (12/31/18) Acute respiratory failure with hypoxia (12/31/18) Unilateral primary osteoarthritis, left knee (12/31/18) Presence of right artificial knee joint (12/31/18) Surgery Performed Operation Date: 12/31/18 11:30 Actual Procedures p Unicompartment Knee Arthroplasty-Medial(Left) - Marin Rodriguez MD Physical Therapy Treatment Note M2 PT-IP Current Condition Start: 12/31/18 16:55 Freq: NEEDED Status: Active Protocol: Document 01/01/19 08:53 EA (Rec: 01/01/19 09:03 EA [id number]) Physical Therapy Current Condition Current Condition Evaluation Date 01/01/19 Treatment Diagnosis s/p left medial compartment arthroplasty 12/31/18 Weight Bearing Status Weight Bearing Status Weight Bear as Tolerated M3 PT-IP Subjective Start: 12/31/18 16:55 Freq: NEEDED Status: Active Protocol: Document 01/04/19 09:40 RCC (Rec: 01/04/19 10:37 RCC [id number]) Subjective Physical Therapy Visit Type Type Treatment Note Visit Start Time 09:40 Visit Stop Time 09:55 Total Visit Minutes 15 Number of TECHNICAL SERVICES MANAGER Visits 0 Physical Therapy Visit Comments Patient Comments pt states he is ready to get out of here. He admits he has had good care, but just eager to get the rehab process going. He refused to perform stairs this session. M4 PT-IP Mobility and Gait Start: 12/31/18 16:55 Freq: NEEDED Status: Active Protocol: Document 01/04/19 09:40 RCC (Rec: 01/04/19 10:37 RCC [id number]) PT-Transfer Assessment Sit to and From Stand Sit to and from Stand Standby Assistance Equipment Transfer Assistive Device Front Wheeled Walker Transfers Transfer Destination Bed Transfer Technique Stand Step Pivot Transfer Ability Level of Assist Standby Assistance Gait Assessment Gait Gait Assistance Required: Standby Assistance Distance (Feet) 200 Assistive Devices Assistive Device Front Wheeled Walker Gait Deviations General Gait Pattern Antalgic Decreased Feet Clearance Wide Based Gait Factors Limiting Gait Function Factors Limiting Gait Function Decreased Activity Tolerance Decreased Strength Limited Range of Motion Pain Stair Climbing Assessment Comments Stair Climbing Comments pt refused M5 PT-IP Objective Assessments Start: 12/31/18 16:55 Freq: NEEDED Status: Active Protocol: Document 01/01/19 08:53 EA (Rec: 01/01/19 09:03 EA [id number]) Orientation Orientation/Cognition Level of Alertness Alert Orientation Name Age Language Function Ability No Deficits Noted Memory Description No Deficits Noted Gross Range of Motion Upper Extremity ROM Assessment Within Functional Limits Lower Extremity ROM Assessment Left Impaired Impairments at least 0-90 deg Strength Upper Extremity Strength Assessment Within Functional Limits Lower Extremity Strength Assessment Left Impaired Knee at least 3/5 Coordination Assessment Gross Coordination Gross Coordination WNL Sensation Assessment Sensation Gross Sensation WNL Light Touch Intact Proprioception (Position) Intact Sensation Description Paresthesia M6 PT-IP Treatment Start: 12/31/18 16:55 Freq: NEEDED Status: Active Protocol: Document 01/04/19 09:40 RCC (Rec: 01/04/19 10:37 RCC [id number]) Physical Therapy Treatment Education Education Provided Safety M7 PT-IP Assessment and Plan Start: 12/31/18 16:55 Freq: NEEDED Status: Active Protocol: Document 01/04/19 09:40 RCC (Rec: 01/04/19 10:37 RCC [id number]) PT Summary Assessment and Plan Summary Assessment Summary Pt able to ambulate 200 ft with FWW and SBA. Pt appears to be anxious and eager to d/ c from hospital. Pt refused to do stairs today during the treatment session. At this point, the pt has not demonstrated the activity tolerance or strength to be able to safely manage the significant amount of stairs that he has to enter/exit home . He is not cleared to return home at this point. Goals Bed Mobility Goal Independent Transfer Goal Independent Gait Goal Independent Gait Distance 300 Other Goals up/down 32 steps B rail SBA Days to Meet Goals 5 Frequency of Treatment Frequency Of Treatment Twice a Day Treatment Plan Other Recommendations and Next Treatment stairs Focus Recommendations To Nursing Amount of Assist Needed 1 Person Assist Discharge Recommendations PT Discharge Recommendations SNF Rehab
[2019-01-04] MEDS: MELOXICAM 7.5 MG TABLET 15 MG PO (10:07)
[2019-01-04] MEDS: ASPIRIN EC 81 MG TABLET PO (10:07)
[2019-01-04] MEDS: LOSARTAN 25 MG TABLET PO (10:07)
[2019-01-04] MEDS: TORSEMIDE 10 MG TABLET 20 MG PO (10:08)
[2019-01-04] MEDS: predniSONE 20 MG TABLET 40 MG PO (10:08)
[2019-01-04] MEDS: POTASSIUM CHLORIDE 20 MEQ TAB PO (10:08)
[2019-01-04] MEDS: ACETAMINOPHEN 325 MG TABLET 975 MG PO (10:08)
[2019-01-04 12:07] VITALS: BP 138/70; PULSE 88; RESP 18; TEMP 36.5; O2SAT 91
--- NOTE | 2019-01-04 12:23 | CM.DPC ---
DCP Cont: Checked in with patient today and confirmed that his brother will be here at approximately [address] Juarez has put in a new discharge order. Left message with Zakia in admissions at [facility] facility is expecting patient at approximately 1400. Nurse, Richelle, has already given report to the facility. P: Patient is to be discharged to [facility] [place]. Has orders in packet, they were already faxed yesterday. Gladys Mabry RN/[employer]
--- NOTE | 2019-01-04 12:38 | PM.PNPO.1 ---
Subjective Date Patient Seen: 01/04/19 Time Patient Seen: 09:00 Interval history: Patient is postop day 4. Unicompartmental knee arthroplasty by Dr. Rodriguez. Slightly longer than average hospital stay due to pulmonary issues. Patient doing very well now and is ready for discharge to care facility. His discharge and orders were actually completed yesterday and we have been awaiting bed availability. Exam Vital Signs (past 8 hours): - 01/04/19 05:01 01/04/19 08:55 01/04/19 09:37 Temperature 97.4 F L 98.2 F Pulse Rate 68 74 86 Respiratory Rate 16 16 Blood Pressure 168/86 H 135/80 Pulse Oximetry 94 97 92 01/04/19 12:07 Temperature 97.7 F Pulse Rate 88 Respiratory Rate 18 Blood Pressure 138/70 Pulse Oximetry 91 Fraction of Inspired Oxygen 21 Oxygen Delivery Method Room Air Oxygen Flow Rate 0 Narrative Exam Narrative: Postoperative knee is stable dry and intact. Distal neurovascular exam is intact. Objective Labs Result Diagrams: 01/01/19 17:28 01/01/19 17:28 Assessment & Plan Post-op Postoperative Procedures Operation Date: 12/31/18 11:30 Actual Procedures Side Surgeon p Unicompartment Knee Arthroplasty-Medial Left Marin Rodriguez MD Postoperative day: 4 Postoperative status: doing well Postoperative status narrative: Patient doing well and ready for discharge to a care facility. Postoperative plan narrative: Discharged today and follow up with Dr. Rodriguez in 7-10 days. Time Spent With Patient less than 15 minutes Quality VTE Deep Vein Thrombosis/Pulmonary Embolism Present on Admission: No
--- NOTE | 2019-01-04 13:23 | PC.NURSE ---
Discharge PIV was removed yesterday. report called to [place] at [facility] and d/c papers given to pt at d/c to take to facility. Pt's brother picked him up in car to take to [place]. Pt was taken down in w/c by TOBACCO EDUCATOR. pt states he took all belonigngs with him including wallet, keys, and FWW. Dressing was reinforced with duoderm this AM as edges were rolling on the side.
== END 2019-01-04 13:00 | DRG 469 ==
LOC: OR 11:11 → AC 01-01 13:14
PROVIDERS: Internal Medicine; Admitting Provider Physician Assistant; PCP Internal Medicine; Visit Provider Orthopaedic Surgery
PROC: 0SRD0L9 Replacement of Left Knee Joint with Medial Unicondylar Synthetic Substitute, Cemented, Open Approach (ICD-10-PCS; CPT 27446; principal; 2018-12-31 11:30)
DX: M17.12 Unilateral primary osteoarthritis, left knee (principal); J96.01 Acute respiratory failure with hypoxia; Z68.41 Body mass index [BMI] 40.0-44.9, adult; J44.1 Chronic obstructive pulmonary disease with (acute) exacerbation; E66.01 Morbid (severe) obesity due to excess calories; G47.33 Obstructive sleep apnea (adult) (pediatric); Z87.891 Personal history of nicotine dependence; I48.0 Paroxysmal atrial fibrillation
CPT/HCPCS: 36415; 71045; 73560; 80048; 83880; 85014; 85018; 85025; 93306; 94618; 94640; 94760; 97116; 97162; 97165; 97530; 97535; C1776; C9290; J0690; J1100; J2250; J2405; J2704; J3010